=== PATIENT | male | born 1945 | race Caucasian/White ===

== ENCOUNTER 2018-02-18 15:49 | Emergency (ER) | payer OTHER ==
[~2018-02-18] VITALS: Ht 172.7 cm; Wt 93.9 kg
[2018-02-18 16:04] VITALS: Ht 172.7 cm; Wt 93.9 kg
[2018-02-18] MEDS ORDERED: SODIUM CHLORIDE 0.9% 1000ML 1,000 ML IV STA (16:20)
[2018-02-18 16:56] LABS: BASO % 1.1 %; BASO ABS # 0.06 K/uL (0-0.2); EOS % 0.2 %; EOS ABS # 0.01 K/uL (0-0.5); HEMATOCRIT 41.6 % (42-52); HEMOGLOBIN 13.8 g/dL (14.0-18.0); IG# 0.01 K/uL (0.00-0.02); LYMPH % 37.8 %; LYMPH ABS # 2.13 K/uL (1.2-3.4); MEAN CELL VOLUME 86.1 fL (80-100); MEAN CORPUSCULAR HEMOGLOBIN 28.6 pg (25-34); MEAN CORPUSCULAR HGB CONC 33.2 g/dl (32-36); MONO % 7.6 %; MONO ABS # 0.43 K/uL (0.11-0.59); NEUT % 53.1 %; PLATELET COUNT 141 K/uL (130-400); RED CELL DISTRIBUTION WIDTH SD 44.3 fL (36.4-46.3); WHITE BLOOD COUNT 5.64 K/uL (4.8-10.8)
[2018-02-18] MEDS ORDERED: ACETAMINOPHEN 500 MG TAB PO STA (17:02)
[2018-02-18 17:08] LABS: BLOOD UREA NITROGEN 15 mg/dl (7-18); CALCIUM 8.9 mg/dl (8.5-10.1); CARBON DIOXIDE 29 mmol/L (21-32); CKMB < 0.5 ng/ml (0.5-3.6); CREATININE 1.13 mg/dl (0.60-1.40); GLUCOSE 131 mg/dl (70-99); SODIUM 137 mmol/L (136-145)
[2018-02-18 17:12] LABS: INR 1.1 (0.9-1.1)
--- NOTE | 2018-02-18 17:27 | DIAGNOSTIC IMAGING REPORT ---
CHEST ONE VIEW PORTABLE CLINICAL HISTORY: 72 years-old Male presenting with Evaluate Fever/Sepsis. TECHNIQUE: Portable upright AP view of the chest was obtained. COMPARISON: None. FINDINGS: Cardiomediastinal silhouette normal. Minimal linear opacity at the left lung base. No other focal opacity. No large effusion or pneumothorax. Degenerative changes of the thoracic spine. IMPRESSION: 1. Minimal linear opacity at the left lung base likely atelectasis or scarring. No convincing evidence of acute cardiopulmonary disease. Electronically signed by: Sukhi Blackwell M.D. 02/18/2018 5:26 PM Dictated Date/Time: 02/18/2018 5:25 PM
[2018-02-18 17:28] LABS: INFLUENZA B ANTIGEN Neg for Influ B (NEG)
[2018-02-18] MEDS ORDERED: METF750T PO (17:31)
[2018-02-18] MEDS ORDERED: CARB0.01 OPB (17:31)
[2018-02-18] MEDS ORDERED: ATEN-173 PO (17:31)
[2018-02-18] MEDS ORDERED: ASPI81TA28 PO (17:31)
[2018-02-18] MEDS ORDERED: AMLO-114 PO (17:31)
[2018-02-18] MEDS ORDERED: LSN/2025 PO (17:31)
[2018-02-18] MEDS ORDERED: MULT-513 PO (17:31)
[2018-02-18] MEDS ORDERED: HYDR2.5O TOP (17:31)
[2018-02-18] MEDS ORDERED: LOVA40TA4 PO (17:31)
[2018-02-18] MEDS ORDERED: CYAN500T PO (17:31)
[2018-02-18] MEDS ORDERED: GLIP5TAB11 PO (17:31)
[2018-02-18] MEDS ORDERED: AMOXICILLIN 250 MG CAP PO STA (17:43)
[2018-02-18] MEDS ORDERED: AMOX875T3 PO (17:50)
--- NOTE | 2018-02-18 17:51 | EMERGENCY ROOM VISIT NOTE ---
History Report prepared by Vladimir: Tracey Alexandre Under the Supervision of: Dr. Dmitry Ravi D.O. 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 He states he has had 4 episodes of fevers, chills, dry cough, decreased appetite, and fatigue over the past 2 months. He also notes he has body aches but denies a sore throat. He took his temperature before coming into the ED and had a fever of 101.6. The patient currently has a headache that he rates as a 4/10 in severity. He is accompanied by his who reports that he may be dehydrated. 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 Review of Systems See HPI for pertinent positives & negatives. A total of 10 systems reviewed and were otherwise negative. Past Medical & Surgical Medical Problems: (1) No chronic problems No chronic problems Family History Patient reports no known family medical history. Social History Smoking Status: Former Smoker Marital Status: Housing Status: lives with significant other Occupation Status: retired Current/Historical Medications Scheduled Amlodipine (Norvasc), 10 MG PO QAM Aspirin (Aspirin Ec), 81 MG PO QAM Atenolol (Tenormin), 25 MG PO QAM Cyanocobalamin (Vitamin B-12), 500 MCG PO QAM Glipizide (Glucotrol), 2.5 MG PO BID Hctz/Lisinopril (Lisinopril/Hctz 20/25 Mg), 2 TAB PO QAM Hydrocortisone (Topical) (Hydrocortisone), 1 APPLN TOP BID Lovastatin (Mevacor), 40 MG PO HS Metformin Hcl (Glucophage Er), 1,500 MG PO HS Multivitamins/Minerals (Mvi With Minerals), 1 TAB PO QAM Scheduled PRN Carboxymethylcellulose-Glyceri (Optive), 1 DROPS OPB BID PRN for DRYNESS Allergies Coded Allergies: No Known Allergies (Unverified , 02/18/18) Physical Exam Vital Signs Date Time Temp Pulse Resp B/P (MAP) Pulse Ox O2 Delivery O2 Flow Rate FiO2 02/18/18 16:04 38.1 73 18 124/62 95 Room Air Physical Exam CONSTITUTIONAL/VITAL SIGNS: Reviewed / noted above. GENERAL: Non-toxic in appearance. INTEGUMENTARY: Warm, dry, and [place]. HEAD: Normocephalic. EYES: without scleral icterus or trauma. ENT/OROPHARYNX: clear and moist. LYMPHADENOPATHY/NECK: Is supple without lymphadenopathy or meningismus. RESPIRATORY: Lungs clear and equal. CARDIOVASCULAR: Regular rate and rhythm. GI/ABDOMEN: Soft and nontender. No organomegaly or pulsatile mass. No rebound or guarding. Normal bowel sounds. EXTREMITIES: Warm and well perfused. BACK: No CVA tenderness. NEUROLOGICAL: Intact without focal deficits. PSYCHIATRIC: normal affect. MUSCULOSKELETAL: Normally developed with good muscle tone. Medical Decision & Procedures ER Provider Diagnostic Interpretation: Radiology results as stated below per my review and radiologist interpretation: CHEST ONE VIEW PORTABLE CLINICAL HISTORY: 72 years-old Male presenting with Evaluate Fever/Sepsis. TECHNIQUE: Portable upright AP view of the chest was obtained. COMPARISON: None. FINDINGS: Cardiomediastinal silhouette normal. Minimal linear opacity at the left lung base. No other focal opacity. No large effusion or pneumothorax. Degenerative changes of the thoracic spine. IMPRESSION: 1. Minimal linear opacity at the left lung base likely atelectasis or scarring. No convincing evidence of acute cardiopulmonary disease. Electronically signed by: Sukhi Blackwell M.D. 02/18/2018 5:26 PM Laboratory Results 02/18/18 16:37 Red Blood Count 4.83, Mean Corpuscular Volume 86.1, Mean Corpuscular Hemoglobin 28.6, Mean Corpuscular Hemoglobin Concent 33.2, Mean Platelet Volume 10.0, Neutrophils (%) (Auto) 53.1, Lymphocytes (%) (Auto) 37.8, Monocytes (%) (Auto) 7.6, Eosinophils (%) (Auto) 0.2, Basophils (%) (Auto) 1.1, Neutrophils # (Auto) 3.00, Lymphocytes # (Auto) 2.13, Monocytes # (Auto) 0.43, Eosinophils # (Auto) 0.01, Basophils # (Auto) 0.06 02/18/18 16:37 Test 02/18/18 16:20 02/18/18 16:37 02/18/18 16:54 Urine Color DK YELLOW Urine Appearance CLEAR (CLEAR) Urine pH 5.0 (4.5-7.5) Urine Specific [place] 1.021 (1.000-1.030) Urine Protein NEG (NEG) Urine Glucose (UA) NEG (NEG) Urine Ketones TRACE (NEG) Urine Occult Blood NEG (NEG) Urine Nitrite NEG (NEG) Urine Bilirubin NEG (NEG) Urine Urobilinogen NEG (NEG) Urine Leukocyte Esterase NEG (NEG) Urine WBC (Auto) 1-5 /hpf (0-5) Urine RBC (Auto) 0-4 /hpf (0-4) Urine Hyaline Casts (Auto) 1-5 /lpf (0-5) Urine Epithelial Cells (Auto) 5-10 /lpf (0-5) Urine Bacteria (Auto) NEG (NEG) White Blood Count 5.64 K/uL (4.8-10.8) Red Blood Count 4.83 M/uL (4.7-6.1) Hemoglobin 13.8 g/dL (14.0-18.0) Hematocrit 41.6 % (42-52) Mean Corpuscular Volume 86.1 fL (80-100) Mean Corpuscular Hemoglobin 28.6 pg (25-34) Mean Corpuscular Hemoglobin Concent 33.2 g/dl (32-36) Platelet Count 141 K/uL (130-400) Mean Platelet Volume 10.0 fL (7.4-10.4) Neutrophils (%) (Auto) 53.1 % Lymphocytes (%) (Auto) 37.8 % Monocytes (%) (Auto) 7.6 % Eosinophils (%) (Auto) 0.2 % Basophils (%) (Auto) 1.1 % Neutrophils # (Auto) 3.00 K/uL (1.4-6.5) Lymphocytes # (Auto) 2.13 K/uL (1.2-3.4) Monocytes # (Auto) 0.43 K/uL (0.11-0.59) Eosinophils # (Auto) 0.01 K/uL (0-0.5) Basophils # (Auto) 0.06 K/uL (0-0.2) RDW Standard Deviation 44.3 fL (36.4-46.3) RDW Coefficient of Variation 14.0 % (11.5-14.5) Immature Granulocyte % (Auto) 0.2 % Immature Granulocyte # (Auto) 0.01 K/uL (0.00-0.02) Prothrombin Time 11.9 SECONDS (9.0-12.0) Prothromb Time International Ratio 1.1 (0.9-1.1) Activated Partial Thromboplast Time 26.0 SECONDS (21.0-31.0) Partial Thromboplastin Ratio 1.0 Anion Gap 5.0 mmol/L (3-11) Est Creatinine Clear Calc Drug Dose 67.6 ml/min Estimated GFR () 75.9 Estimated GFR (Non- 65.5 BUN/Creatinine Ratio 13.1 (10-20) Calcium Level 8.9 mg/dl (8.5-10.1) Total Creatine Kinase 57 U/L (39-308) Creatine Kinase MB < 0.5 ng/ml (0.5-3.6) Creatine Kinase MB Ratio (0-3.0) Influenza Type A Antigen Neg for Influ A (NEG) Influenza Type B Antigen Neg for Influ B (NEG) Laboratory results as stated above per my review. Medications Administered Medications (Trade) Dose Ordered Sig/Jesu Route Start Time Stop Time Status Last Admin Dose Admin Sodium Chloride 1,000 ml @ 250 mls/hr Q4H STAT IV 02/18/18 16:20 02/18/18 20:19 02/18/18 16:49 250 MLS/HR Acetaminophen (Tylenol Tab) 500 mg NOW STAT PO 02/18/18 17:02 02/18/18 17:04 DC 02/18/18 17:20 500 MG ED Course 1616: Previous medical records were reviewed. The patient was evaluated in room B2. A complete history and physical examination was performed. 1620: Sodium Chloride 1000 ml @ 250 mls/hr IV 1702: Ordered Tylenol Tab 500 mg PO 1744: On reevaluation, the patient is feeling better. I discussed the results and findings with the patient. He verbalized agreement of the treatment plan. He was discharged home. Medical Decision Differential includes viral illness, influenza, streptococcal pharyngitis, meningitis, pneumonia, sinusitis, UTI, pyelonephritis, otitis media. This is a 72-year-old male who presents to the ED with a chief complaint of fever, cough that is nonproductive, fatigue, decreased appetite and body aches. He reports having the symptoms for the past 2 days. Temperature today is 38.1. Vital signs otherwise stable. Physical exam was relatively unremarkable. The patient is in no distress. His exam did not reveal any abnormal findings on lung exam. His abdomen is soft and nontender. He did report some increased urination at night but had no additional urinary symptoms. He denies any skin infections, vomiting or diarrhea. The patient's test results did not show a clear-cut cause for the fever although the atelectasis on the chest x-ray could represent a pneumonia based on the patient' s symptoms. He is not hypoxic or having any respiratory difficulties but does have a cough. It is nonproductive. The patient CBC reviewed is normal, PRP is normal, urine did not show infection and flu swab was negative. The patient's symptoms could otherwise be viral in nature. The patient was started on amoxicillin. He was given a dose here and discharged on this. He will continue Tylenol for fever control. He was given a dose of this year. He was felt to be stable for discharge. Medication Reconcilliation Current Medication List: was personally reviewed by me Blood Pressure Screening Patient's blood pressure: Normal blood pressure Blood pressure disposition: Did not require urgent referral Impression Primary Impression: Pneumonia Scribe Attestation The scribe's documentation has been prepared under my direction and personally reviewed by me in its entirety. I confirm that the note above accurately reflects all work, treatment, procedures, and medical decision making performed by me. Departure Information Dispostion Home / Self-Care Prescriptions Amoxicillin (AMOXIL) 875 Mg Tab 1 TAB PO BID for 7 Days, #14 TAB Prov: Dmitry Ravi D.O. 02/18/18 Referrals Mallorie Olson M.D. (PCP) Forms HOME CARE DOCUMENTATION FORM, IMPORTANT VISIT INFORMATION, WORK / SCHOOL INSTRUCTIONS Patient Instructions My [facility] [employer] Additional Instructions Amoxicillin twice a day as prescribed. Take Tylenol as needed for fever. Follow-up with your doctor for further care and evaluation in 1-2 days. Return to the emergency department for worsening or new symptoms or any concerns. You have been examined and treated today on an emergency basis only. This is not a substitute for, or an effort to provide, complete comprehensive medical care. It is impossible to recognize and treat all injuries or illnesses in a single emergency department visit. It is therefore important that you follow up closely with your doctor. Call as soon as possible for an appointment.
[2018-02-18 18:42] VITALS: BP 125/60; PULSE 68; TEMP 38.1; O2SAT 93
== END 2018-02-18 18:43 | disposition home or self-care (01) ==
LOC: C.EDB 15:50
DX: J18.9 Pneumonia, unspecified organism (principal); R51 Headache; Z79.899 Other long term (current) drug therapy

== ENCOUNTER → 2018-05-12 | Outpatient (CLI) | payer OTHER ==
[~2018-05-12] MED LIST: ASPI81TA28 PO; CYAN500T PO; DXY100 PO; GLIP5TAB11 PO; HYDR2.5O TOP; METF750T PO; METO50TA16 PO; MULT-513 PO
[2018-05-12 14:39] LABS: ALBUMIN 3.5 gm/dl (3.4-5.0); ALKALINE PHOSPHATASE 72 U/L (45-117); ALT/SGPT 145 U/L (12-78); AST/SGOT 71 U/L (15-37); BLOOD UREA NITROGEN 15 mg/dl (7-18); CALCIUM 8.7 mg/dl (8.5-10.1); CARBON DIOXIDE 28 mmol/L (21-32); CREATININE 0.96 mg/dl (0.60-1.40); GLUCOSE 157 mg/dl (70-99); POTASSIUM 4.3 mmol/L (3.5-5.1); SODIUM 141 mmol/L (136-145)
== END | disposition home or self-care (01) ==
LOC: C.LABBC 10:26
PROVIDERS: ATTEND Physician Assistant Medical
DX: R74.0 Nonspecific elevation of levels of transaminase and lactic acid dehydrogenase [LDH] (principal); K76.0 Fatty (change of) liver, not elsewhere classified

== ENCOUNTER 2023-01-22 17:08 | Inpatient (IN) ==
[2023-01-22] MEDS ORDERED: SODIUM CHLORIDE 0.9% 1000ML 1,000 ML IV SCH (17:30)
[2023-01-22] MEDS ORDERED: LIDOCAINE/EPINEPH/TETRACAINE 1 EA SYR EXT STA (17:31)
--- NOTE | 2023-01-22 17:39 | Emergency Department Note ---
Impression & Plan Syncope and collapse, Fall, CHI (closed head injury), Atrial fibrillation with rapid ventricular response, Laceration of scalp ED Provider Note INFORMANT: Patient and family ED PROVIDER(S): Adams Garg MD CHIEF COMPLAINT: Fall PLAN: Disposition: Admitted Condition: Good Outpatient prescription management: none Referral: None MEDICAL DECISION MAKING: Patient presented because of a fall that by history appears to be a syncopal event. He did strike his head and suffered a laceration. He was in a cervical collar prehospital. Patient was evaluated. He was found to be in rapid atrial fibrillation. The patient is on diltiazem at home. He is anticoagulated. He w as started on diltiazem drip and given a bolus. The patient did have his drip titrated as he was still rapid. The patient underwent head CT and cervical spine CT imaging and this was negative for acute traumatic pathology other than a scalp laceration. I discontinued his cervical collar. The patient had his scalp laceration repaired by me. See below. His CBC and chemistry panels were unremarkable. Troponin negative. The patient is still dealing with rapid A- fib. He is mildly hypertensive. He will need further management in the hospital. Consultation was made with Dr. Rene Bae of the [facility] service. Patient was evaluated in the ER for further management. Discussed with assistant front office manager After review of the information above and other included data, I feel the patient requires admission. Triage Nursing notes reviewed and agree them. Vital Signs: reviewed and remarkable for no significant abnormalities Prior /Outside records reviewed: none Differential diagnosis: SDH, SAH, closed head injury, infection, dehydration, metabolic abnormality, hypo/hyperglycemia, electrolyte disturbance, anemia, hypoxia, cardiac sources, i ntracerebral event, toxicologic, neurologic, as well as other pathologies. Diagnostics, as interpreted by me: EC ECG twelve-lead ECG reveals atrial fibrillation at [address] depression noted. Right bundle branch block and QRS widening present. Cardiac Monitoring: Cardiac monitoring ordered by me: The patient was placed on continuous cardiac monitoring and observed. It revealed atrial fibrillation with RVR at 130 bpm Medical decision rules: none Imaging studies: CT head and CT cervical spine negative for intracranial or cervical trauma. I refer you to the EMR for further details. HPI: The patient is a 77 year old male who presents to the Emergency Room with complaints of fall. This started just prior to arrival and occurred at home. The patient was ambulating to the bathroom. He is not sure what happened. He fell and hit the floor. Family heard him and noted he was dazed on the floor. He suffered a laceration to his right scalp. The patient also notes the following associated symptoms, mild headache. The patient has been placed in a cervical collar by EMS but given no medication for relieving factors. Current pain is rated as 3/10. Patient denies any recent illness pt denies fevers, chills, diaphoresis, visual changes, neck pain, chest pain, breathing difficulties, nausea, vomiting, abdominal pain, back pain, urinary symptoms, numbness, weakness, lymphadenopathy, rash, or other complaints. PAST MEDICAL HISTORY: See Below, A-fib, hypertension PAST SURGICAL HISTORY: See Below, SOCIAL HISTORY: See Below, retired HOME MEDICATIONS: See Below ALLERGIES: See Below VITALS: See Below PHYSICAL EXAMINATION: GENERAL: Awake, alert, [id number], in no distress HENT: Normocephalic, laceration to the scalp on the right with associated contusion.. Oropharynx unremarkable. EYES: Normal conjunctiva. Sclera non-icteric. PERRLA. NECK: Inspection normal. Cervical collar in place. No midline step-off or tenderness. No masses. RESPIRATORY: Clear to auscultation. No wheezes. No rales. Normal respiratory effort. CARDIAC: Tachycardic rate. Irregular rhythm. No murmurs. No rubs. Extremities warm and well perfused. Pulses equal. No JVD. GI: Soft, non-distended. No tenderness to palpation. No rebound or guarding. No masses. RECTAL: Deferred. MUSCULOSKELETAL: Atraumatic. Chest examination reveals no tenderness. The back is symmetrical on inspection without obvious abnormality. There is no CVA tenderness to palpation. No joint edema. LOWER EXTREMITIES: Calves are equal size bilaterally and non-tender. 1+ edema. No discoloration. NEURO: Normal sensorium. No sensory or motor deficits noted. SKIN: No rash or jaundice noted. LACERATION REPAIR: Location: Scalp Total length: 3 cm Complexity: Simple Verbal consent was obtained after the risks and benefits were explained, including but not limited to bleeding, scarring, infection, pain, and bone/nerve damage. At this time, the risks of the procedure are less than the risks of NOT performing the procedure. A time out was taken and the correct patient and site identified. The scalp was prepped with betadine. The target area was anesthetized let gel. Copious irrigation was performed using saline. The skin was re-prepped with betadine, the hair cleared from the wound, and a sterile field set. The wound was explored for foreign bodies and none found. Debridement was not performed. The wound edges were approximated using 4 surgical gilbert in the standard fashion. Hemostasis and excellent approximation was achieved. Antibacterial ointment and a sterile dressing applied. Detailed wound care i nstructions and signs and symptoms of infection reviewed with the patient and. No complications and the patient tolerated the procedure well. CRITICAL CARE: I have personally spent greater than 35 minutes of critical care time in the direct management of this patient. This includes bedside care, interpretation of diagnostic studies, and testing, discussion with consultants, patient, and family members, and other required patient management activities. This 35 minutes is in excess of all separately billable procedures. Past Med/Surg History Medical History Atrial fibrillation Bilateral renal cysts Coronary artery calcification Elevated transaminase level Hepatic steatosis Hyperlipidemia Hypertension Solitary pulmonary nodule Thyroid nodule Type 2 diabetes mellitus Volar plate injury of finger Surgical History History of cholecystectomy 1984 History of hernia repair 1985 Family History Mother Stroke Gallbladder disease Cardiac disorder Hypertension Brother Gallbladder disease Hypertension Diabetes Drug abuse Father Cardiac disorder Hypertension Grandmother (Paternal) Breast cancer Denies family history of Ovarian cancer Prostate cancer Colorectal cancer Social History Smoking Status: Never smoker Second Hand Exposure: No; Hx Alcohol Use: No Hx Substance Use: No Preferred Language: Kyrgyz Communication Ability: Effective Visual Impairment: Limited Hearing Ability: Normal marital status: / Current Living Situation: Family Current Living Situation Comment: lives with two sons current occupational status: retired How many Children do You have: 2 Feels Safe at Home: Yes Childhood Exposure to Second-Hand Smoke: No caffeine: Yes (coffee ) Dental Care, Regularly: No Physical Activity Frequency: Does not Exercise Seatbelt Use: always Sunscreen Use: No Allergies Allergies Allergy/AdvReac Type Severity Reaction Status Date / Time No Known Allergies Allergy Verified 01/22/23 19:00 Home Meds Home Medications Medication Instructions Recorded Confirmed cyanocobalamin (vitamin B-12) 1,000 mcg PO DAILY 04/07/19 01/22/23 1,000 mcg tablet multivitamin (Daily Multi-Vitamin 1 tab PO DAILY 04/07/19 01/22/23 tablet) diltiazem HCl 180 mg capsule,24 180 mg PO DAILY 11/11/19 01/22/23 hr,extended release metformin 500 mg tablet 2,000 mg PO DAILY 11/11/19 01/22/23 apixaban 5 mg tablet 5 mg PO BID 05/19/20 01/22/23 metoprolol succinate 100 mg 100 mg PO DAILY 01/22/23 01/22/23 tablet,extended release 24 hr rosuvastatin 10 mg tablet 5 mg PO DAILY 01/22/23 01/22/23 Results & Data (ED) Vital Signs Vital Signs - 24 hr 01/22/23 17:16 01/22/23 17:16 01/22/23 17:22 Temperature 36.6 C 36.6 C Temperature Source Oral Oral Pulse Rate 127 H 130 H Pulse Rate [Apical] 130 H Pulse Rate from SpO2 Sensor Pulse Rhythm [Apical] Irregular Respiratory Rate 18 18 Respiratory Effort / Characteristics Non-Labored Respiratory Depth Normal Normal Blood Pressure 170/103 H Blood Pressure [Left Arm] 152/93 H Blood Pressure Mean 125 Blood Pressure Mean [Left Arm] 112 Pulse Oximetry 96 96 Oxygen Delivery Method Room Air Room Air Sepsis Recent Fever Within 48 Hours No Sepsis New/Unexplained Change in Mental Status No Sepsis Action Taken by Nursing No Action Required 01/22/23 18:54 01/22/23 19:12 01/22/23 19:20 Temperature Temperature Source Pulse Rate 128 H 127 H Pulse Rate [Apical] 128 H Pulse Rate from SpO2 Sensor 128 H 128 H Pulse Rhythm [Apical] Irregular Respiratory Rate 18 14 13 Respiratory Effort / Characteristics Respiratory Depth Blood Pressure 167/98 H Blood Pressure [Left Arm] 153/94 H Blood Pressure Mean 121 Blood Pressure Mean [Left Arm] 113 Pulse Oximetry 96 94 93 Oxygen Delivery Method Room Air Sepsis Recent Fever Within 48 Hours Sepsis New/Unexplained Change in Mental Status Sepsis Action Taken by Nursing 01/22/23 19:30 Temperature Temperature Source Pulse Rate 127 H Pulse Rate [Apical] Pulse Rate from SpO2 Sensor 126 H Pulse Rhythm [Apical] Respiratory Rate 12 Respiratory Effort / Characteristics Respiratory Depth Blood Pressure 162/99 H Blood Pressure [Left Arm] Blood Pressure Mean 120 Blood Pressure Mean [Left Arm] Pulse Oximetry 93 Oxygen Delivery Method Sepsis Recent Fever Within 48 Hours Sepsis New/Unexplained Change in Mental Status Sepsis Action Taken by Nursing Laboratory Data 01/22/23 17:18 01/22/23 17:18 Lab Results 01/22/23 01/22/23 01/22/23 Range/Units 17:18 17:18 17:18 WBC 7.73 (4.8-10.8) K/ul RBC 4.88 (4.70-6.10) M/uL Hgb 14.3 (14.0-18.0) g/dl Hct 43.3 (42.0-52.0) % MCV 88.7 (80.0-100.0) fL MCH 29.3 (25.0-34.0) pg MCHC 33.0 (32.0-36.0) g/dL RDW Std Deviation 44.2 (36.4-46.3) fL RDW Coeff of Timothy 13.6 (11.5-14.5) % Plt Count 225 (130-400) K/uL MPV 10.7 (9.4-12.4) fL Immature Gran % (Auto) 0.4 % Neut % (Auto) 67.9 % Lymph % (Auto) 23.4 % [place] % (Auto) 7.0 % Eos % (Auto) 0.8 % Baso % (Auto) 0.5 % Neut # (Auto) 5.25 (1.40-6.50) K/uL Lymph # (Auto) 1.81 (1.2-3.4) K/uL [place] # (Auto) 0.54 (0.11-0.59) K/uL Eos # (Auto) 0.06 (0-0.50) K/uL Baso # (Auto) 0.04 (0-0.2) K/uL Immature Gran # (Auto) 0.03 (0.01-0.20) K/uL PT 11.9 (9.0-12.0) Seconds INR 1.1 (0.9-1.1) Sodium 143 (136-145) mmol/L Potassium 4.6 (3.5-5.1) mmol/L Chloride 105 (98-107) mmol/L Carbon Dioxide 22 (21-32) mmol/L Anion Gap 16 H (3-11) BUN 22 (6-23) mg/dl Creatinine 1.17 (0.6-1.4) mg/dl Est Cr Clr Drug Dosing 59.9 ml/min Est GFR ( Amer) 70.3 ml/min Est GFR (Non-Af Amer) 60.6 ml/min BUN/Creatinine Ratio 18.8 (10-20) Glucose 180 H (70-99(Fasting)) mg/dl Calcium 9.7 (8.6-10.3) mg/dl Magnesium 1.7 (1.7-2.4) mg/dl Total Bilirubin 0.5 (0.2-1.0) mg/dl AST 37 (13-39) U/L ALT 40 (7-52) U/L Alkaline Phosphatase 40 (34-104) U/L Troponin I High Sens 4.6 (0-20) pg/ml Total Protein 7.0 (6.0-8.3) gm/dl Albumin 4.4 (3.4-5.0) gm/dl Globulin 2.6 (2.5-4.0) gm/dl Albumin/Globulin Ratio 1.7 (0.9-2) TSH (0.300-4.500) uIu/ml 01/22/23 Range/Units 17:18 WBC (4.8-10.8) K/ul RBC (4.70-6.10) M/uL Hgb (14.0-18.0) g/dl Hct (42.0-52.0) % MCV (80.0-100.0) fL MCH (25.0-34.0) pg MCHC (32.0-36.0) g/dL RDW Std Deviation (36.4-46.3) fL RDW Coeff of Timothy (11.5-14.5) % Plt Count (130-400) K/uL MPV (9.4-12.4) fL Immature Gran % (Auto) % Neut % (Auto) % Lymph % (Auto) % [place] % (Auto) % Eos % (Auto) % Baso % (Auto) % Neut # (Auto) (1.40-6.50) K/uL Lymph # (Auto) (1.2-3.4) K/uL [place] # (Auto) (0.11-0.59) K/uL Eos # (Auto) (0-0.50) K/uL Baso # (Auto) (0-0.2) K/uL Immature Gran # (Auto) (0.01-0.20) K/uL PT (9.0-12.0) Seconds INR (0.9-1.1) Sodium (136-145) mmol/L Potassium (3.5-5.1) mmol/L Chloride (98-107) mmol/L Carbon Dioxide (21-32) mmol/L Anion Gap (3-11) BUN (6-23) mg/dl Creatinine (0.6-1.4) mg/dl Est Cr Clr Drug Dosing ml/min Est GFR ( Amer) ml/min Est GFR (Non-Af Amer) ml/min BUN/Creatinine Ratio (10-20) Glucose (70-99(Fasting)) mg/dl Calcium (8.6-10.3) mg/dl Magnesium (1.7-2.4) mg/dl Total Bilirubin (0.2-1.0) mg/dl AST (13-39) U/L ALT (7-52) U/L Alkaline Phosphatase (34-104) U/L Troponin I High Sens (0-20) pg/ml Total Protein (6.0-8.3) gm/dl Albumin (3.4-5.0) gm/dl Globulin (2.5-4.0) gm/dl Albumin/Globulin Ratio (0.9-2) TSH 2.799 (0.300-4.500) uIu/ml Administered Medications Sodium Chloride (Nss 1000ml) 1,000 mls @ 125 mls/hr IV .Q8H KEITH Stop: 01/23/23 01:29 Last Admin: 01/22/23 17:57 Dose: 125 mls/hr Documented By: BECCA Diltiazem HCl 125 mg/ Dextrose 125 mls @ 5 mls/hr IV .Q24H KEITH; Protocol Stop: 02/21/23 18:29 Last Titration: 01/22/23 19:36 Dose: 7.5 mg/hr, 7.5 mls/hr Documented By: CHARITY Co-signed By: VANESSA Admin: 01/22/23 18:52 Dose: 5 mg/hr, 5 mls/hr Documented By: KV Co-signed By: MT Discontinued Medications Diltiazem HCl (Diltiazem Hcl 5 Mg/Ml 5 Ml Vial) 10 mg IV NOW STA Stop: 01/22/23 18:20 Last Admin: 01/22/23 18:38 Dose: 10 mg Documented By: KV Co-signed By: HG Lidocaine (Lidocaine/Epineph/Tetracaine 1 Ea Syr) 1 each EXT NOW STA Stop: 01/22/23 17:32 Last Admin: 01/22/23 17:57 Dose: 1 each Documented By: KV Imaging Data Radiologist's Impression: Chest X-Ray 01/22/23 17:25 XR chest 1V portable HISTORY: tachycardia COMPARISON: Chest 12/04/2022. Chest CT 06/15/2021. FINDINGS: Stable 1 cm circumscribed nodule within the right upper lobe. No p neumothorax. No pleural effusions. Left basilar linear densities favor subsegmental atelectasis. Otherwise, no focal lung consolidations to suggest a pneumonia. No evidence for pulmonary edema. The heart remains mildly enlarged. IMPRESSION: No significant change compared to the prior study. No acute process. Stable 1 cm right upper lobe nodule. ACT 112: Negative or not required by law. Electronically signed by: Fabian Bill M.D. 01/22/2023 5:[address] 01/22/23 17:[address] DOSE: HISTORY: trauma TECHNIQUE: Multiaxial CT images of the head were performed without the use of intravenous contrast. Automated exposure control was utilized for this study. A dose lowering technique was utilized adhering to the principles of ALARA. Comparison: None. Findings: The paranasal sinuses and mastoid air cells are clear. The calvarium and skull base are intact. The ventricles and sulci are within normal limits. There is no mass, hematoma, midline shift, or acute infarct. Scalp laceration at the right high convexity. Impression: No acute intracranial abnormality. Right-sided scalp laceration. ACT 112: Negative or not required by law. Electronically signed by: Fabian Bill M.D. 01/22/2023 7:[address] 01/22/23 17:[address] DOSE: 1133.91 mGy.cm HISTORY: Fall. trauma TECHNIQUE: Multiaxial CT images of the cervical spine were performed and reformatted in the sagittal and coronal plane without the use of contrast. A dose lowering technique was utilized adhering to the principles of ALARA. COMPARISON: None. FINDINGS: No fractures. No subluxation. Prevertebral soft tissues and the C1-C2 interval are intact. No pneumothorax. There is a 2.5 cm right thyroid nodule. Severe disc space narrowing from C3 through C5. Moderate disc space narrowing at C5-C6. IMPRESSION: 1. No fractures within the cervical spine. 2. A 2.5 cm right thyroid nodule. ACT 112: Negative or not required by law. Electronically signed by: Fabian Bill M.D. 01/22/2023 7:36 PM Discharge Plan Visit Data Chief Complaint: Fall Stated Complaint: FALL, ABRASSION TO HEAD ED Provider: Adams Garg Discharge Problem: Syncope and collapse, Fall, CHI (closed head injury), Atrial fibrillation with rapid ventricular response, Laceration of scalp Forms Stand Alone Forms: [facility] Prescriptions Prescriptions: No Action cyanocobalamin (vitamin B-12) 1,000 mcg tablet 1,000 mcg PO DAILY multivitamin [Daily Multi-Vitamin] tablet 1 tab PO DAILY metformin 500 mg tablet 2,000 mg PO DAILY diltiazem HCl 180 mg capsule,extended release 24 hr 180 mg PO DAILY apixaban 5 mg tablet 5 mg PO BID metoprolol succinate 100 mg Tablet Extended Release 24 Hr 100 mg PO DAILY rosuvastatin 10 mg Tablet 5 mg PO DAILY Referrals Referrals: Sukhi Kearns MD [Primary Care Provider] -
--- NOTE | 2023-01-22 17:44 | XRay Report ---
XR chest 1V portable HISTORY: tachycardia COMPARISON: Chest 12/04/2022. Chest CT 06/15/2021. FINDINGS: Stable 1 cm circumscribed nodule within the right upper lobe. No pneumothorax. No pleural e ffusions. Left basilar linear densities favor subsegmental atelectasis. Otherwise, no focal lung cons olidations to suggest a pneumonia. No evidence for pulmonary edema. The heart remains mildly enlarged . IMPRESSION: No significant change compared to the prior study. No acute process. Stable 1 cm right upper lobe nod ule. ACT 112: Negative or not required by law. Electronically signed by: Fabian Bill M.D. 01/22/2023 5:43 PM
[2023-01-22 18:10] LABS: Basophils # (auto) 0.04 K/uL (0-0.2); Basophils % (auto) 0.5 %; Eosinophils # (auto) 0.06 K/uL (0-0.50); Eosinophils % (auto) 0.8 %; Hematocrit (blood only) 43.3 % (42.0-52.0); Hemoglobin 14.3 g/dl (14.0-18.0); Immature Granulocytes # (auto) 0.03 K/uL (0.01-0.20); Immature Granulocytes % (auto) 0.4 %; Lymphocytes # (auto) 1.81 K/uL (1.2-3.4); Lymphocytes % (auto) 23.4 %; Mean Corpuscular Hemoglobin 29.3 pg (25.0-34.0); Mean Corpuscular Volume 88.7 fL (80.0-100.0); Mean Platelet Volume 10.7 fL (9.4-12.4); Monocytes # (auto) 0.54 K/uL (0.11-0.59); Neutrophils # (auto) 5.25 K/uL (1.40-6.50); Neutrophils % (auto) 67.9 %; Platelet Count 225 K/uL (130-400); RDW Coefficient of Variation 13.6 % (11.5-14.5); RDW Standard Deviation 44.2 fL (36.4-46.3); Red Blood Count 4.88 M/uL (4.70-6.10); White Blood Count 7.73 K/ul (4.8-10.8)
[2023-01-22] MEDS ORDERED: dilTIAZem HCl 5 MG/ML 5 ML VIAL IV STA (18:19)
[2023-01-22] MEDS ORDERED: STAT IV Infusion **Titration per Protocol STA (18:19)
[2023-01-22 18:27] LABS: Troponin I High Sensitivity 4.6 pg/ml (0-20)
[2023-01-22 18:28] LABS: INR 1.1 (0.9-1.1); Prothrombin Time 11.9 Seconds (9.0-12.0)
[2023-01-22] MEDS ORDERED: dilTIAZem HCL 125 MG in DEXTROSE 5% 100 ML IV SCH (18:30)
--- NOTE | 2023-01-22 19:34 | CT Scan Report ---
HEAD CT NONCONTRAST CT DOSE: HISTORY: trauma TECHNIQUE: Multiaxial CT images of the head were performed without the use of intravenous contrast. A utomated exposure control was utilized for this study. A dose lowering technique was utilized adheri ng to the principles of ALARA. Comparison: None. Findings: The paranasal sinuses and mastoid air cells are clear. The calvarium and skull base are int act. The ventricles and sulci are within normal limits. There is no mass, hematoma, midline shift, or acute infarct. Scalp laceration at the right high convexity. Impression: No acute intracranial abnormality. Right-sided scalp laceration. ACT 112: Negative or not required by law. Electronically signed by: Fabian Bill M.D. 01/22/2023 7:32 PM
--- NOTE | 2023-01-22 19:38 | CT Scan Report ---
CERVICAL SPINE CT CT DOSE: 1133.91 mGy.cm HISTORY: Fall. trauma TECHNIQUE: Multiaxial CT images of the cervical spine were performed and reformatted in the sagittal and coronal plane without the use of contrast. A dose lowering technique was utilized adhering to th e principles of ALARA. COMPARISON: None. FINDINGS: No fractures. No subluxation. Prevertebral soft tissues and the C1-C2 interval are intact. No pneumothorax. There is a 2.5 cm right thyroid nodule. Severe disc space narrowing from C3 through C5. Moderate disc space narrowing at C5-C6. IMPRESSION: 1. No fractures within the cervical spine. 2. A 2.5 cm right thyroid nodule. ACT 112: Negative or not required by law. Electronically signed by: Fabian Bill M.D. 01/22/2023 7:36 PM
[2023-01-22 19:53] LABS: Albumin Globulin Ratio 1.7 (0.9-2); Albumin Level 4.4 gm/dl (3.4-5.0); BUN Creatinine Ratio 18.8 (10-20); Bilirubin,Total 0.5 mg/dl (0.2-1.0); Calcium 9.7 mg/dl (8.6-10.3); Creatinine Clr Calc Pharmacy 59.9 ml/min; Est GFR (African American) 70.3 ml/min; Est GFR (Non-African American) 60.6 ml/min; Globulin 2.6 gm/dl (2.5-4.0); Magnesium 1.7 mg/dl (1.7-2.4); Potassium 4.6 mmol/L (3.5-5.1)
[2023-01-22 21:10] LABS: Appearance Urine Clear (Clear); Bilirubin Urine Negative (Negative); Blood Urine Negative (Negative); Color Urine Yellow; Glucose Urine UA Negative (Negative); Ketones Urine 1+ (Negative); Leukocyte Esterase Urine Negative (Negative); Nitrite Urine Negative (Negative); Protein Urine Negative (Negative); Specific Gravity Urine 1.014 (1.000-1.030); Urobilinogen Urine Negative (Negative)
[2023-01-22] MEDS ORDERED: dilTIAZem HCL 30 MG TAB PO ONE (21:21)
--- NOTE | 2023-01-22 21:30 | History & Physical Report ---
Date of Service January 22, 2023 Assessment & Plan (1) Fall: (2) CHI (closed head injury): (3) Atrial fibrillation with rapid ventricular response: (4) Laceration of scalp: (5) Syncope and collapse: (6) Coronary artery calcification: (7) Atrial fibrillation: (8) Hepatic steatosis: (9) Hyperlipidemia: (10) Hypertension: (11) Solitary pulmonary nodule: (12) Thyroid nodule: (13) Type 2 diabetes mellitus: Plan Status post fall with syncopal episode and collapse- Patient had no warning, and primary memory returned during the ride to the hospital in the ambulance. Seen in the emergency department, the patient reports that he feels back to normal. He denies any change in recent activities, oral intake and has been taking his medications as directed CT scan of head is negative, other than for right scalp laceration CT scan of cervical spine is negative other than for 2.5 cm right thyroid nodule Presumptively associated with development of A-fib with RVR and adverse effect on blood pressure Atrial fibrillation with RVR/hypertension- The patient will be admitted to telemetry for serial cardiac enzymes, serial EKG's, cardiac rhythm monitoring and a 2-D echocardiogram with Dopplers. Continue apixaban 5 mg p.o. twice daily Continue diltiazem HCl 180 mg extended release daily Continue metoprolol succinate 100 mg p.o. daily The patient has been started on Cardizem drip in the ED Will try to stop Cardizem drip after starting oral Cardizem 30 mg p.o. 3 times daily. Patient will likely need Cardizem CD180 mg p.o. twice daily Optimize potassium and magnesium then follow laboratories every morning Consult cardiology Diabetes mellitus- Hold metformin Placed on Accu-Cheks with NovoLog SSI Hyperlipidemia- Continue rosuvastatin 5 mg daily History of Present Illness Chief Complaint: The patient presents to the emergency department after a syncopal episode at home, where he fell and suffered a laceration. Upon arrival to the emergency department he was found in atrial fibrillation with RVR Primary Care Provider: Sukhi Kearns MD The patient is a 77-year-old male with past medical history including atrial fibrillation, hepatic steatosis, hyperlipidemia, hypertension, solitary pulmonary nodule, thyroid nodule and diabetes mellitus type 2. He presents to the emergency department after a syncopal episode while at home, and upon arrival to the emergency department found in atrial fibrillation with RVR. The patient reports that his first recollection after passing out was waking up in the ambulance on the way to the hospital Allergies Allergy/AdvReac Type Severity Reaction Status Date / Time No Known Allergies Allergy Verified 01/22/23 19:00 Home Medications Medication Instructions Recorded Confirmed Type cyanocobalamin (vitamin B-12) 1,000 mcg PO DAILY 04/07/19 01/22/23 History 1,000 mcg tablet multivitamin (Daily Multi-Vitamin 1 tab PO DAILY 04/07/19 01/22/23 History tablet) diltiazem HCl 180 mg capsule,24 180 mg PO DAILY 11/11/19 01/22/23 History hr,extended release metformin 500 mg tablet 2,000 mg PO DAILY 11/11/19 01/22/23 History apixaban 5 mg tablet 5 mg PO BID 05/19/20 01/22/23 History metoprolol succinate 100 mg 100 mg PO DAILY 01/22/23 01/22/23 History tablet,extended release 24 hr rosuvastatin 10 mg tablet 5 mg PO DAILY 01/22/23 01/22/23 History Past Med/Surg History Medical History Atrial fibrillation Bilateral renal cysts Coronary artery calcification Elevated transaminase level Hepatic steatosis Hyperlipidemia Hypertension Solitary pulmonary nodule Thyroid nodule Type 2 diabetes mellitus Volar plate injury of finger Surgical History History of cholecystectomy 1984 History of hernia repair 1985 Family History Mother Stroke Gallbladder disease Cardiac disorder Hypertension Brother Gallbladder disease Hypertension Diabetes Drug abuse Father Cardiac disorder Hypertension Grandmother (Paternal) Breast cancer Denies family history of Ovarian cancer Prostate cancer Colorectal cancer Social History Smoking Status: Former smoker Second Hand Exposure: No; Hx Alcohol Use: No Hx Substance Use: No Preferred Language: Spanish Communication Ability: Effective Visual Impairment: Limited Hearing Ability: Normal Beliefs That Will Affect Care: None marital status: / Current Living Situation: Family Current Living Situation Comment: lives with two sons current occupational status: retired How many Children do You have: 2 Feels Safe at Home: Yes Childhood Exposure to Second-Hand Smoke: No caffeine: Yes (coffee ) Dental Care, Regularly: No Physical Activity Frequency: Does not Exercise Seatbelt Use: always Sunscreen Use: No Assistive Devices: None Review of Systems Review of Systems: The patient denies chest pain, palpitations, shortness of breath, dyspnea on exertion, cough, lower extremity swelling, sore throat, fevers, chills, sweats, nausea, vomiting, diarrhea , constipation, abdominal pain, pelvic pain, blood in urine or stool, dysuria, urinary frequency or urgency, lightheadedness, dizziness, headache, rash, abnormal bruising or bleeding, imbalance, focal or generalized weakness, numbness or tingling in arms or legs, generalized arthralgias or myalgias, back or neck pain, or night sweats. The review of systems is otherwise negative other than for that already noted above, and at least 10 systems have been reviewed. Physical Exam Physical Exam: The patient is awake, alert and oriented 3, well developed and well nourished, normocephalic and atraumatic, lying in bed and in no acute distress. HEENT--PERRL, EOMI, mucous membranes and oropharynx dry. Neck--supple. No JVD. No bruits. Thyroid normal, trachea midline, no adenopathy. Heart--irregularly irregular and tachycardic. No murmurs, rubs or gallops. Lungs--clear bilaterally, no respiratory distress, no accessory muscle use. Abdomen--normal bowel sounds and soft. Nontender. Nondistended, no hernias or masses, no organomegaly. Extremities--no cyanosis or clubbing. No edema. There are good distal pulses b/l. Dermatologic--normal skin turgor, normal color, no abnormal lymph nodes, no rash. Neurologic--cranial nerves II through XII grossly intact. Rheumatologic--normal range of motion. Psychiatric--normal affect. Results & Data Results & Data Vital Signs (Past 12 Hours) Vital Signs Temp Pulse Pulse Resp BP BP Pulse Ox 01/22/23 21:26 115 H 01/22/23 19:30 127 H 12 162/99 H 93 01/22/23 19:20 127 H 13 93 01/22/23 19:12 128 H 14 167/98 H 94 01/22/23 18:54 128 H 18 153/94 H 96 01/22/23 17:22 130 H 01/22/23 17:16 36.6 C 130 H 18 152/93 H 96 01/22/23 17:16 36.6 C 127 H 18 170/103 H 96 O2 Del Method 01/22/23 21:26 01/22/23 19:30 01/22/23 19:20 01/22/23 19:12 01/22/23 18:54 Room Air 01/22/23 17:22 01/22/23 17:16 Room Air 01/22/23 17:16 Room Air Laboratory Results Laboratory Results WBC 7.73 K/ul (4.8-10.8) 01/22/23 17:18 RBC 4.88 M/uL (4.70-6.10) 01/22/23 17:18 Hgb 14.3 g/dl (14.0-18.0) 01/22/23 17:18 Hct 43.3 % (42.0-52.0) 01/22/23 17:18 MCV 88.7 fL (80.0-100.0) 01/22/23 17:18 MCH 29.3 pg (25.0-34.0) 01/22/23 17:18 MCHC 33.0 g/dL (32.0-36.0) 01/22/23 17:18 RDW Std Deviation 44.2 fL (36.4-46.3) 01/22/23 17:18 RDW Coeff of Timothy 13.6 % (11.5-14.5) 01/22/23 17:18 Plt Count 225 K/uL (130-400) 01/22/23 17:18 MPV 10.7 fL (9.4-12.4) 01/22/23 17:18 Immature Gran % (Auto) 0.4 % 01/22/23 17:18 Neut % (Auto) 67.9 % 01/22/23 17:18 Lymph % (Auto) 23.4 % 01/22/23 17:18 [place] % (Auto) 7.0 % 01/22/23 17:18 Eos % (Auto) 0.8 % 01/22/23 17:18 Baso % (Auto) 0.5 % 01/22/23 17:18 Neut # (Auto) 5.25 K/uL (1.40-6.50) 01/22/23 17:18 Lymph # (Auto) 1.81 K/uL (1.2-3.4) 01/22/23 17:18 [place] # (Auto) 0.54 K/uL (0.11-0.59) 01/22/23 17:18 Eos # (Auto) 0.06 K/uL (0-0.50) 01/22/23 17:18 Baso # (Auto) 0.04 K/uL (0-0.2) 01/22/23 17:18 Immature Gran # (Auto) 0.03 K/uL (0.01-0.20) 01/22/23 17:18 PT 11.9 Seconds (9.0-12.0) 01/22/23 17:18 INR 1.1 (0.9-1.1) 01/22/23 17:18 Sodium 143 mmol/L (136-145) 01/22/23 17:18 Potassium 4.6 mmol/L (3.5-5.1) 01/22/23 17:18 Chloride 105 mmol/L (98-107) 01/22/23 17:18 Carbon Dioxide 22 mmol/L (21-32) 01/22/23 17:18 Anion Gap 16 (3-11) H 01/22/23 17:18 BUN 22 mg/dl (6-23) 01/22/23 17:18 Creatinine 1.17 mg/dl (0.6-1.4) 01/22/23 17:18 Est Cr Clr Drug Dosing 59.9 ml/min 01/22/23 17:18 Est GFR ( Amer) 70.3 ml/min 01/22/23 17:18 Est GFR (Non-Af Amer) 60.6 ml/min 01/22/23 17:18 BUN/Creatinine Ratio 18.8 (10-20) 01/22/23 17:18 Glucose 180 mg/dl (70-99(Fasting)) H 01/22/23 17:18 Calcium 9.7 mg/dl (8.6-10.3) 01/22/23 17:18 Magnesium 1.7 mg/dl (1.7-2.4) 01/22/23 17:18 Total Bilirubin 0.5 mg/dl (0.2-1.0) 01/22/23 17:18 AST 37 U/L (13-39) 01/22/23 17:18 ALT 40 U/L (7-52) 01/22/23 17:18 Alkaline Phosphatase 40 U/L (34-104) 01/22/23 17:18 Troponin I High Sens 4.6 pg/ml (0-20) 01/22/23 17:18 Total Protein 7.0 gm/dl (6.0-8.3) 01/22/23 17:18 Albumin 4.4 gm/dl (3.4-5.0) 01/22/23 17:18 Globulin 2.6 gm/dl (2.5-4.0) 01/22/23 17:18 Albumin/Globulin Ratio 1.7 (0.9-2) 01/22/23 17:18 TSH 2.799 uIu/ml (0.300-4.500) 01/22/23 17:18 Urine Color Yellow 01/22/23 20:52 Urine Appearance Clear (Clear) 01/22/23 20:52 Urine pH 5.0 (4.5-7.5) 01/22/23 20:52 Ur Specific [place] 1.014 (1.000-1.030) 01/22/23 20:52 Urine Protein Negative (Negative) 01/22/23 20:52 Urine Glucose (UA) Negative (Negative) 01/22/23 20:52 Urine Ketones 1+ (Negative) H 01/22/23 20:52 Urine Blood Negative (Negative) 01/22/23 20:52 Urine Nitrite Negative (Negative) 01/22/23 20:52 Urine Bilirubin Negative (Negative) 01/22/23 20:52 Urine Urobilinogen Negative (Negative) 01/22/23 20:52 Ur Leukocyte Esterase Negative (Negative) 01/22/23 20:52 SARS-CoV-2, RNA, NAAT NEGATIVE (NEGATIVE) 01/22/23 19:25 Impressions Chest X-Ray 01/22/23 17:25 XR chest 1V portable HISTORY: tachycardia COMPARISON: Chest 12/04/2022. Chest CT 06/15/2021. FINDINGS: Stable 1 cm circumscribed nodule within the right upper lobe. No pneumothorax. No pleural effusions. Left basilar linear densities favor subsegmental atelectasis. Otherwise, no focal lung consolidations to suggest a pneumonia. No evidence for pulmonary edema. The heart remains mildly enlarged. IMPRESSION: No significant change compared to the prior study. No acute process. Stable 1 cm right upper lobe nodule. ACT 112: Negative or not required by law. Electronically signed by: Fabian Bill M.D. 01/22/2023 5:[address] 01/22/23 17:[address] DOSE: HISTORY: trauma TECHNIQUE: Multiaxial CT images of the head were performed without the use of intravenous contrast. Automated exposure control was utilized for this study. A dose lowering technique was utilized adhering to the principles of ALARA. Comparison: None. Findings: The paranasal sinuses and mastoid air cells are clear. The calvarium and skull base are intact. The ventricles and sulci are within normal limits. There is no mass, hematoma, midline shift, or acute infarct. Scalp laceration at the right high convexity. Impression: No acute intracranial abnormality. Right-sided scalp laceration. ACT 112: Negative or not required by law. Electronically signed by: Fabian Bill M.D. 01/22/2023 7:[address] 01/22/23 17:[address] DOSE: 1133.91 mGy.cm HISTORY: Fall. trauma TECHNIQUE: Multiaxial CT images of the cervical spine were performed and reformatted in the sagittal and coronal plane without the use of contrast. A dose lowering technique was utilized adhering to the principles of ALARA. COMPARISON: None. FINDINGS: No fractures. No subluxation. Prevertebral soft tissues and the C1-C2 interval are intact. No pneumothorax. There is a 2.5 cm right thyroid nodule. Severe disc space narrowing from C3 through C5. Moderate disc space narrowing at C5-C6. IMPRESSION: 1. No fractures within the cervical spine. 2. A 2.5 cm right thyroid nodule. ACT 112: Negative or not required by law. Electronically signed by: Fabian Bill M.D. 01/22/2023 7:36 PM Code Status & VTE Plan Code Status Full code VTE Prophylaxis Plan VTE Prophylaxis will be ordered: Yes PG Care Time/CCT Total # of Minutes Spent Total Time Spent with Patient: Total time spent is greater than 50% in coordination of care (as documented) at patient's floor/unit and/or counseling patient: Coding Level of Care Code 83125 INT INP/OBS CARE 375MIN Diagnoses Fall W19.XXXA CHI (closed head injury) S09.90XA Atrial fibrillation with rapid ventricular response I48.91 Laceration of scalp S01.01XA Syncope and collapse R55 Coronary artery calcification I25.10; I25.84 Atrial fibrillation I48.0 Atrial fibrillation type: paroxysmal Hepatic steatosis K76.0 Hyperlipidemia E78.5 Hyperlipidemia type: unspecified Hypertension I10 Hypertension type: essential hypertension Solitary pulmonary nodule R91.1 Thyroid nodule E04.1 Type 2 diabetes mellitus E11.9 Diabetes mellitus computer terminal operator insulin use: without computer terminal operator use Diabetes mellitus complication status: without complication (7) Atrial fibrillation Atrial fibrillation type: paroxysmal Qualified Code(s): I48.0 - Paroxysmal atrial fibrillation (9) Hyperlipidemia Hyperlipidemia type: unspecified Qualified Code(s): E78.5 - Hyperlipidemia, unspecified (10) Hypertension Hypertension type: essential hypertension Qualified Code(s): I10 - Essential (primary) hypertension (13) Type 2 diabetes mellitus Diabetes mellitus computer terminal operator insulin use: without alf use Diabetes mellitus complication status: without complication Qualified Code(s): E11.9 - Type 2 diabetes mellitus without complications
[2023-01-22] MEDS: MAGNESIUM SULFATE / D5W 1 GM/100 ML BAG IV SCH ×2 (21:41→23:22)
[2023-01-22] MEDS ORDERED: ONDANSETRON INJ 2 MG/ML 2 ML VIAL IV PRN (23:15)
[2023-01-22] MEDS ORDERED: CARBOHYDRATES FOR HYPOGLYCEMIA PO PRN (23:15)
[2023-01-22] MEDS ORDERED: GLUCOSE 10 TAB/TUBE PO PRN (23:15)
[2023-01-22] MEDS ORDERED: GLUCOSE 40% GEL 15 GM TUBE PO PRN (23:15)
[2023-01-22] MEDS ORDERED: DEXTROSE 50% 50 ML SYRINGE IV PRN (23:15)
[2023-01-22] MEDS ORDERED: GLUCAGON FOR INJ 1 MG VIAL SQ PRN (23:15)
[2023-01-22] MEDS: dilTIAZem HCL 30 MG TAB PO SCH (23:51)
[2023-01-23] MEDS ORDERED: MELATONIN 3 MG TAB PO PRN (01:00)
[2023-01-23] MEDS: ACETAMINOPHEN 325 MG TAB PO PRN ×2 (01:23→10:59)
[2023-01-23] MEDS: dilTIAZem HCL 30 MG TAB PO SCH (06:15)
[2023-01-23 07:31] LABS: Basophils # (auto) 0.02 K/uL (0-0.2); Basophils % (auto) 0.4 %; Eosinophils # (auto) 0.04 K/uL (0-0.50); Eosinophils % (auto) 0.7 %; Hematocrit (blood only) 40.6 % (42.0-52.0); Hemoglobin 13.5 g/dl (14.0-18.0); Immature Granulocytes # (auto) 0.01 K/uL (0.01-0.20); Immature Granulocytes % (auto) 0.2 %; Lymphocytes # (auto) 0.88 K/uL (1.2-3.4); Lymphocytes % (auto) 15.8 %; Mean Corpuscular Hemoglobin 29.1 pg (25.0-34.0); Mean Corpuscular Hgb Conc 33.3 g/dL (32.0-36.0); Mean Corpuscular Volume 87.5 fL (80.0-100.0); Mean Platelet Volume 10.5 fL (9.4-12.4); Monocytes # (auto) 0.52 K/uL (0.11-0.59); Monocytes % (auto) 9.3 %; Neutrophils % (auto) 73.6 %; Platelet Count 190 K/uL (130-400); RDW Coefficient of Variation 13.6 % (11.5-14.5); Red Blood Count 4.64 M/uL (4.70-6.10); White Blood Count 5.57 K/ul (4.8-10.8)
[2023-01-23] MEDS: CYANOCOBALAMIN (B-12) 500 MCG TABLET PO SCH (07:54)
[2023-01-23] MEDS: ROSUVASTATIN CALCIUM 5 MG TAB PO SCH (07:55)
[2023-01-23] MEDS: MULTIVITAMIN TAB PO SCH (07:55)
[2023-01-23] MEDS: APIXABAN 5 MG TABLET PO SCH ×2 (07:55→21:22)
[2023-01-23] MEDS: INSULIN ASPART PER UNIT CHARGE SC SCH ×4 (08:09→20:55)
[2023-01-23] MEDS: METOPROLOL SUCC 50MG EXT REL TAB PO SCH (08:09)
[2023-01-23] MEDS: dilTIAZem HCL 240 MG CAPCR PO SCH (08:48)
[2023-01-23] MEDS ORDERED: dilTIAZem HCL 180 MG CAPCR PO SCH (09:00)
[2023-01-23 09:24] LABS: Estimated Average Glucose 146 mg/dl; Hemoglobin A1C 6.7 % (4.5-5.6)
[2023-01-23 09:45] LABS: Albumin Level 4.1 gm/dl (3.4-5.0); Calcium 9.4 mg/dl (8.6-10.3); Creatinine Clr Calc Pharmacy 78.8 ml/min; Est GFR (African American) 97.4 ml/min; Magnesium 1.9 mg/dl (1.7-2.4); Phosphorus 3.1 mg/dl (2.5-4.9); Potassium 3.7 mmol/L (3.5-5.1)
[2023-01-23] MEDS ORDERED: MAGNESIUM SULFATE / D5W 1 GM/100 ML BAG IV ONE (10:03)
[2023-01-23] MEDS ORDERED: POTASSIUM CHLORIDE CRTAB 20 MEQ TABCR PO STA (10:03)
--- NOTE | 2023-01-23 11:16 | Cardiology Consultation ---
Date of Consultation January 23, 2023 Assessment & Plan (1) Fall: -uncertain if this was simply orthostatic, or secondary to syncope related to a bradydysrhythmia. -suggest proceeding with a loop recorder. (2) Atrial fibrillation with rapid ventricular response: -agree with intravenous diltiazem. -continue metoprolol succinate, long-acting diltiazem, and Eliquis. -could consider antiarrhythmic therapy with amiodarone. (3) Hypertension: -adequate control on current regimen. (4) Hyperlipidemia: -continue rosuvastatin. History of Present Illness Attending Physician: Louise Shelton MD History of Present Illness Mr. Enamorado is a 77-year-old male admitted yesterday after a fall which resulted in a scalp laceration. The patient was noted to be in atrial fibrillation with a rapid ventricular response, therefore, this consultation was ordered. Of note, the patient follows with cardiology at the [facility]. The patient was in his usual state of health until last evening. He stood from a seated position to go use the bathroom. After several steps, the patient fell striking his head with a resultant laceration. He has no memory of the fall, and only remembers waking up in the ambulance. He has never experienced syncope previously. However, he has noted that his blood pressures occasionally less than 100 systolic and his heart rate is often in the 40 beat per minute range. He does carry history of paroxysmal atrial fibrillation. He is maintained on metoprolol succinate, long-acting diltiazem, and Eliquis. We have discussed need for a loop recorder. Currently, patient is resting comfortably in bed and without complaints. Past medical and surgical history 1. Hypertension 2. Hypercholesterolemia 3. Paroxysmal atrial fibrillation 4. RBBB 5. Diabetes mellitus 6. Bilateral renal cysts 7. Right upper lobe pulmonary nodule 8. Right-sided thyroid nodule 9. Hepatic steatosis 10. Cholecystectomy-1984 11. Inguinal hernia repair-1985 Social history , but lives with his 2 sons. No tobacco alcohol Family history Noncontributory Review of systems A 10 review systems was undertaken and negative except that described above. Allergies Allergy/AdvReac Type Severity Reaction Status Date / Time No Known Allergies Allergy Verified 01/22/23 19:00 Home Medications Medication Instructions Recorded Confirmed Type cyanocobalamin (vitamin B-12) 1,000 mcg PO DAILY 04/07/19 01/22/23 History 1,000 mcg tablet multivitamin (Daily Multi-Vitamin 1 tab PO DAILY 04/07/19 01/22/23 History tablet) diltiazem HCl 180 mg capsule,24 180 mg PO DAILY 11/11/19 01/22/23 History hr,extended release metformin 500 mg tablet 2,000 mg PO DAILY 11/11/19 01/22/23 History apixaban 5 mg tablet 5 mg PO BID 05/19/20 01/22/23 History metoprolol succinate 100 mg 100 mg PO DAILY 01/22/23 01/22/23 History tablet,extended release 24 hr rosuvastatin 10 mg tablet 5 mg PO DAILY 01/22/23 01/22/23 History Patient History Medical History Atrial fibrillation Bilateral renal cysts Coronary artery calcification Elevated transaminase level Hepatic steatosis Hyperlipidemia Hypertension Solitary pulmonary nodule Thyroid nodule Type 2 diabetes mellitus Volar plate injury of finger Surgical History History of cholecystectomy 1985 History of hernia repair 1985 Family History Mother Stroke Gallbladder disease Cardiac disorder Hypertension Brother Gallbladder disease Hypertension Diabetes Drug abuse Father Cardiac disorder Hypertension Grandmother (Paternal) Breast cancer Denies family history of Ovarian cancer Prostate cancer Colorectal cancer Social History Smoking Status: Former smoker Second Hand Exposure: No; Do You Dip or Chew Tobacco: No; Tobacco Cessation Education Requested by Patient: No Hx Alcohol Use: No Hx Substance Use: No Preferred Language: Persian Communication Ability: Effective Visual Impairment: Limited Hearing Ability: Normal Beliefs That Will Affect Care: None marital status: / Current Living Situation: Family Current Living Situation Comment: lives with two sons current occupational status: retired How many Children do You have: 2 Other Information That Helps Us Care for You: No Feels Safe at Home: Yes Safety Concerns: Feels Safe At This Time Childhood Exposure to Second-Hand Smoke: No caffeine: Yes (coffee ) Dental Care, Regularly: No Physical Activity Frequency: Does not Exercise Seatbelt Use: always Sunscreen Use: No Assistive Devices: None Physical Exam Physical Exam: In general is well-developed well-nourished white male in no acute distress. HEENT exam notes several gilbert on the right scalp. His air is blood tinged on the right side. Neck is supple with full carotid upstrokes. There are no carotid bruits. Jugular is pressure is flat at 90. There is no thyromegaly. Cardiovascular exam reveals an irregular irregular rhythm with distant heart sounds. No obvious murmurs are noted. Lungs are clear without rales, rhonchi, or wheezes. Abdomen is soft without bruits. Extremities reveal intact radial artery pulses bilaterally. There is no peripheral edema. Results & Data Vital Signs (Past 12 Hours) Vital Signs Temp Pulse Pulse Resp BP Pulse Ox O2 Del Method 01/23/23 11:08 36.6 C 122 H 19 157/106 H 94 Room Air 01/23/23 07:21 36.7 C 121 H 18 157/101 H 95 Room Air 01/23/23 02:34 36.6 C 69 18 126/68 92 Room Air 01/23/23 02:00 96 H 01/22/23 23:22 36.6 C 98 H 18 154/91 H 98 Room Air Laboratory Results CBC notes hemoglobin 13.5, hematocrit 40.6, white count 5.57, and platelet count of [id number]. Electrolytes note a sodium of 143, potassium 4.6, chloride 105, bicarb 22, BUN 22, creatinine 1.17, glucose of 180. Magnesium level is normal 1.7. High sensitivity troponins 4.6. Diagnostic Findings EKG notes atrial fibrillation with a rapid ventricular response. There is a complete right bundle branch block. Chest x-ray notes cardiomegaly and a right upper lobe nodule. PG Care Time/CCT Total # of Minutes Spent Total Time Spent with Patient: Total time spent is greater than 50% in coordination of care (as documented) at patient's floor/unit and/or counseling patient: Coding Level of Care Code 66572 INT INP/OBS CARE 3/75MIN Diagnoses Fall W19.XXXA Atrial fibrillation with rapid ventricular response I48.91 Hypertension I10 Hypertension type: essential hypertension Hyperlipidemia E78.5 Hyperlipidemia type: unspecified (3) Hypertension Hypertension type: essential hypertension Qualified Code(s): I10 - Essential (primary) hypertension (4) Hyperlipidemia Hyperlipidemia type: unspecified Qualified Code(s): E78.5 - Hyperlipidemia, unspecified
--- NOTE | 2023-01-23 13:57 | Hospitalist Progress Note ---
Date of Service January 23, 2023 Assessment & Plan (1) Syncope and collapse: Plan: Status post fall with syncopal episode and collapse-was feeling lightheaded prior to standing up and walking to the bathroom after which he passed out. No witnessed seizure activity. Does have frequent episodes of feeling completely drained and unable to get up at home sometimes with heart rates measured in the 40s. Also has other times where he senses a racing heart beat Presented here with rapid atrial fibrillation. Blood pressures are currently elevated CT scan of head is negative, other than for right scalp laceration CT scan of cervical spine is negative other than for 2.5 cm right thyroid nodule TSH normal. CBC normal, no renal failure, no fevers or recent illness. Presumptively associated with development of A-fib with RVR and adverse effect on blood pressure versus bradycardia dysrhythmia causing syncope? Continue telemetry monitoring Echocardiogram is normal without significant valvular disease Check orthostatic vital signs (2) Atrial fibrillation with rapid ventricular response: Plan: Presented with rapid atrial fibrillation. Has a history of paroxysmal atrial fibrillation. This in the setting of syncope as noted above Troponin negative on arrival Initially placed on diltiazem drip which has been weaned off with the addition of 2 doses of diltiazem 30 mg p.o. Rates are now well controlled in the 80s to 90s Appreciate cardiology consultation -Increase home diltiazem to 240 mg extended release once daily -Continue apixaban 5 mg p.o. twice daily -Continue metoprolol succinate 100 mg p.o. daily -Cardiology recommends implantation of loop recorder tomorrow to monitor for bradycardia and tachycardia -Optimize potassium magnesium-give 1 g IV magnesium sulfate and 48 mEq p.o. p otassium chloride today -Follow BMP and magnesium in the morning -Continue to monitor on telemetry -Consider amiodarone as per cardiology (3) Laceration of scalp: Plan: Secondary to syncope with fall and head injury [address] Advised nurse to keep the wound clean with soap and water and allowed to air dry, leave open to air Follow-up for staple removal in 1 week (4) Hypertension: Plan: Blood pressures are mildly elevated He recently stopped his HCTZ/lisinopril due to side effect Continue metoprolol, increasing diltiazem as above Monitor (5) Thyroid nodule: Plan: TSH here is normal Previous biopsy negative in 2018 (6) Coronary artery calcification: Plan: Seen on CT scan 2020 Continue rosuvastatin, apixaban, metoprolol (7) Type 2 diabetes mellitus: Plan: Well-controlled with hemoglobin A1c 6.7% Hold metformin from home Placed on Accu-Cheks with NovoLog SSI (8) Hyperlipidemia: Plan: Continue rosuvastatin 5 mg daily (9) Solitary pulmonary nodule: Plan: Noted on chest x-ray Known and follows as an outpatient Admission and Anticipated Discharge Date Admission Date: January 22, 2023 Subjective Patient reports feeling well now. He reports at home there are days where he feels like he can barely get up out of the chair and that his whole body is very weak. There are also times where he gets up in the middle night to urinate and when he comes back feels rapid racing heartbeat. Denies chest pains or shortness of breath. He did not have any chest pains prior to passing out yesterday. He reports he was feeling somewhat off and lightheaded before he stood up to walk to the bathroom yesterday before passing out. I discussed his care with cardiology. Plans for loop recorder to be placed tomorrow Physical Exam Constitutional: WD/WN, vitals as above Neck: trachea midline, no thyromegaly Respiratory: normal respiratory effort, lungs clear to auscultation Cardiovascular: Rate/Rhythm: regular rate and + irregularly irregular Heart Sounds: no murmur Extremities: no edema Chest (Breasts): Chest: normal inspection of chest Gastrointestinal (Abdomen): normal bowel sounds, soft, nontender, no hepatosplenomegaly Musculoskeletal: Extremities: extremities normal to inspection; no cyanosis and no clubbing Skin: no rashes, warm and dry Trauma: + laceration (Right side of scalp with 2 cm laceration, [address]) Neurologic: moves all extremities and awake; no focal motor deficits Psychiatric: A+Ox3, euthymic affect Lymphatic: no lymphedema Results & Data Results & Data Vital Signs (Past 12 Hours) Vital Signs Temp Pulse Pulse Resp BP Pulse Ox O2 Del Method 01/23/23 11:08 36.6 C 122 H 19 157/106 H 94 Room Air 01/23/23 07:21 36.7 C 121 H 18 157/101 H 95 Room Air 01/23/23 02:34 36.6 C 69 18 126/68 92 Room Air 01/23/23 02:00 96 H Laboratory Results CBC, BMP, magnesium level reviewed PG Care Time/CCT Total # of Minutes Spent Total Time Spent with Patient: Total time spent is greater than 50% in coordination of care (as documented) at patient's floor/unit and/or counseling patient: Coding Level of Care Code 84297 SUB INP/OBS CARE 3/50MIN Diagnoses Syncope and collapse R55 Atrial fibrillation with rapid ventricular response I48.91 Laceration of scalp S01.01XA Hypertension I10 Hypertension type: essential hypertension Thyroid nodule E04.1 Coronary artery calcification I25.10; I25.84 Type 2 diabetes mellitus E11.9 Diabetes mellitus complication status: without complication Diabetes mellitus detention insulin use: without detention use Hyperlipidemia E78.5 Hyperlipidemia type: unspecified Solitary pulmonary nodule R91.1 (4) Hypertension Hypertension type: essential hypertension Qualified Code(s): I10 - Essential (primary) hypertension (7) Type 2 diabetes mellitus Diabetes mellitus complication status: without complication Diabetes mellitus detention insulin use: without director long term care use Qualified Code(s): E11.9 - Type 2 diabetes mellitus without complications (8) Hyperlipidemia Hyperlipidemia type: unspecified Qualified Code(s): E78.5 - Hyperlipidemia, unspecified
--- NOTE | 2023-01-23 15:33 | XCELERA ---
[id number]
--- NOTE | 2023-01-23 16:44 | Electrocardiogram Report ---
Test Reason : Blood Pressure : / mmHG Vent. Rate : 130 BPM Atrial Rate : 131 BPM P-R Int : 000 ms QRS Dur : 132 ms QT Int : 294 ms P-R-T Axes : 000 092 -34 degrees QTc Int : 432 ms Poor data quality, interpretation may be adversely affected Probable Atrial flutter Right bundle branch block Abnormal ECG When compared with ECG of 04-DEC-2022 17:04, Vent. rate has increased BY 61 BPM Confirmed by Nadeem Lockhart ([id number]) on 01/23/2023 4:44:01 PM Referred By: REFERRED SELF Confirmed By:Nadeem Lockhart
--- NOTE | 2023-01-23 16:47 | Electrocardiogram Report ---
Test Reason : Blood Pressure : / mmHG Vent. Rate : 118 BPM Atrial Rate : 092 BPM P-R Int : 000 ms QRS Dur : 134 ms QT Int : 372 ms P-R-T Axes : 000 073 -34 degrees QTc Int : 521 ms Atrial fibrillation with rapid ventricular response Right bundle branch block Abnormal ECG When compared with ECG of 22-JAN-2023 17:18, (unconfirmed) Atrial fibrillation now present Confirmed by Nadeem Lockhart ([id number]) on 01/23/2023 4:47:13 PM Referred By: REFERRED SELF Confirmed By:Nadeem Lockhart
[2023-01-24 06:02] LABS: Basophils # (auto) 0.03 K/uL (0-0.2); Basophils % (auto) 0.6 %; Eosinophils # (auto) 0.06 K/uL (0-0.50); Eosinophils % (auto) 1.2 %; Hematocrit (blood only) 39.5 % (42.0-52.0); Hemoglobin 13.2 g/dl (14.0-18.0); Immature Granulocytes # (auto) 0.02 K/uL (0.01-0.20); Immature Granulocytes % (auto) 0.4 %; Lymphocytes # (auto) 1.12 K/uL (1.2-3.4); Lymphocytes % (auto) 21.9 %; Mean Corpuscular Hemoglobin 29.3 pg (25.0-34.0); Mean Corpuscular Hgb Conc 33.4 g/dL (32.0-36.0); Mean Corpuscular Volume 87.6 fL (80.0-100.0); Mean Platelet Volume 10.2 fL (9.4-12.4); Monocytes # (auto) 0.41 K/uL (0.11-0.59); Neutrophils # (auto) 3.48 K/uL (1.40-6.50); Neutrophils % (auto) 67.9 %; Platelet Count 186 K/uL (130-400); RDW Coefficient of Variation 13.8 % (11.5-14.5); RDW Standard Deviation 43.9 fL (36.4-46.3); Red Blood Count 4.51 M/uL (4.70-6.10); White Blood Count 5.12 K/ul (4.8-10.8)
[2023-01-24 06:11] LABS: Albumin Level 3.9 gm/dl (3.4-5.0); BUN Creatinine Ratio 18.7 (10-20); Calcium 9.1 mg/dl (8.6-10.3); Est GFR (African American) 95.2 ml/min; Est GFR (Non-African American) 82.2 ml/min; Magnesium 1.8 mg/dl (1.7-2.4); Phosphorus 2.8 mg/dl (2.5-4.9); Potassium 4.1 mmol/L (3.5-5.1)
[2023-01-24] MEDS ORDERED: LIDOCAINE 1% LOCAL 20 ML VIAL ONE (07:12)
[2023-01-24] MEDS: APIXABAN 5 MG TABLET PO SCH (08:35)
[2023-01-24] MEDS: INSULIN ASPART PER UNIT CHARGE SC SCH ×2 (08:35→13:03)
[2023-01-24] MEDS: CYANOCOBALAMIN (B-12) 500 MCG TABLET PO SCH (08:37)
[2023-01-24] MEDS: dilTIAZem HCL 240 MG CAPCR PO SCH (08:37)
[2023-01-24] MEDS: ROSUVASTATIN CALCIUM 5 MG TAB PO SCH (08:37)
[2023-01-24] MEDS: METOPROLOL SUCC 50MG EXT REL TAB PO SCH (08:37)
[2023-01-24] MEDS: MULTIVITAMIN TAB PO SCH (08:37)
[2023-01-24] MEDS ORDERED: MAGNESIUM SULFATE / D5W 1 GM/100 ML BAG IV ONE (08:38)
--- NOTE | 2023-01-24 12:18 | Electrophysiology Report ---
Date of Service January 24, 2023 Electrophysiology Procedure Electrophysiology Procedure Report The procedure performed: Implantation of patient activated loop recorder Staff photonics engineering technician: Theron Baer MD Indication: The patient is a 77-year-old gentleman with a history of syncope. He is known to have a variety of arrhythmias and the device was implanted in order to help diagnose the etiology of his syncope. Procedure in detail: The patient was informed of the risks benefits and alternatives to the intended procedure. They understood such and wished to proceed. The patient was taken to the electrophysiology suite where the upper chest area was prepped and draped in the usual sterile fashion. An area left lateral to the sternum in the 4th intercostal space was subsequently anesthetized using subcutaneous administration of lidocaine solution. A small incision was made at this site and implantation of the loop recorder was accomplished using a proprietary implantation tool. The small incision was subsequently closed using a single 4 0 Vicryl suture. Steri-Strips and a sterile dressing were then applied. The patient tolerated the procedure well. There were no immediate complications. The device was tested noninvasively prior to conclusion of the procedure. Equipment used: Patient activated loop recorder: Test [employer]. Model number [id number]. Serial number [id number] MN[employer] Electrophysiology codes Implantable Monitors Procedure 1: Implantable Monitors: [id number] Loop Recorder Implant
--- NOTE | 2023-01-24 15:26 | Discharge Summary ---
Date of Service January 24, 2023 Admission HPI Per Admitting Provider The patient is a 77-year-old male with past medical history including atrial fibrillation, hepatic steatosis, hyperlipidemia, hypertension, solitary pulmonary nodule, thyroid nodule and diabetes mellitus type 2. He presents to the emergency department after a syncopal episode while at home, and upon arrival to the emergency department found in atrial fibrillation with RVR. The patient reports that his first recollection after passing out was waking up in the ambulance on the way to the hospital Principal Diagnosis Syncope Rapid atrial fibrillation and flutter Discharge Exam Constitutional WD/WN, vitals as above Neck trachea midline, no thyromegaly Respiratory normal respiratory effort, lungs clear to auscultation Cardiovascular Rate/Rhythm: regular rate and + irregularly irregular Heart Sounds: no murmur Extremities: no edema Chest (Breasts) Chest: normal inspection of chest Gastrointestinal (Abdomen) normal bowel sounds, soft, nontender, no hepatosplenomegaly Musculoskeletal Extremities: extremities normal to inspection; no cyanosis and no clubbing Skin no rashes, warm and dry Trauma: + laceration (Right side of scalp with 2 cm laceration, [address]) Neurologic moves all extremities and awake; no focal motor deficits Psychiatric A+Ox3, euthymic affect Lymphatic no lymphedema Discharge Data Allergies Allergy/AdvReac Type Severity Reaction Status Date / Time No Known Allergies Allergy Verified 01/22/23 19:00 Consultations 01/22/23 20:23 ED Decision to Admit Stat 01/23/23 08:03 Consult Cardiology Routine Procedures Performed Operation Date: 01/24/23 14:00 Actual Procedures p Implant Cardiac Event Recorder - Theron Baer MD Ordered Studies 01/22/23 17:25 CT head/brain wo con Stat 01/22/23 17:31 CT cervical spine wo con Stat 01/24/23 07:00 EP Lab Images for PACS ONCE ECHO Hospital Course (1) Syncope and collapse: Status post fall with syncopal episode and collapse-was feeling lightheaded prior to standing up and walking to the bathroom after which he passed out. No witnessed seizure activity. Does have frequent episodes of feeling completely drained and unable to get up at home sometimes with heart rates measured in the 40s. Also has other times where he senses a racing heart beat Presented here with rapid atrial fibrillation and also has atrial flutter at times. Blood pressures are normal to elevated, not low CT scan of head is negative, other than for right scalp laceration CT scan of cervical spine is negative other than for 2.5 cm right thyroid nodule TSH normal. CBC normal, no renal failure, no fevers or recent illness. Presumptively associated with development of A-fib with RVR and adverse effect on blood pressure versus bradycardia dysrhythmia causing syncope? Echocardiogram is normal without significant valvular disease Not lightheaded with standing, doing well Loop recorder placed (2) Atrial fibrillation with rapid ventricular response: Presented with rapid atrial flutter but also has rate controlled atrial fibrillation on tele. Has a history of paroxysmal atrial fibrillation presumably but Cardiology records from 2020 do not specify. This in the setting of syncope as noted above Troponin negative on arrival Initially placed on diltiazem drip which has been weaned off with the addition of 2 doses of diltiazem 30 mg p.o. Rates are now well controlled in the 80s to 90s in Afib, but has Aflutter in the 120-130s intermittently Appreciate cardiology consultation -Increased home diltiazem to 240 mg extended release once daily -Continue apixaban 5 mg p.o. twice daily -Continue metoprolol succinate 100 mg p.o. daily -Cardiology recommends implantation of loop recorder to monitor for bradycardia and tachycardia -Optimize potassium magnesium-gave magnesium here -f/u with Cardiology in 1 week (3) Laceration of scalp: Secondary to syncope with fall and head injury [address] -keep the wound clean with soap and water and allowed to air dry, leave open to air -Follow-up for staple removal in 1 week w/ PCP (4) Hypertension: Blood pressures are mildly elevated to normal He recently stopped his HCTZ/lisinopril due to side effect Continue metoprolol, increased diltiazem as above (5) Thyroid nodule: TSH here is normal Previous biopsy negative in 2018 (6) Coronary artery calcification: Seen on CT scan 2020 Continue rosuvastatin, apixaban, metoprolol (7) Type 2 diabetes mellitus: Well-controlled with hemoglobin A1c 6.7% Hold metformin from home Placed on Accu-Cheks with NovoLog SSI (8) Hyperlipidemia: Continue rosuvastatin 5 mg daily (9) Solitary pulmonary nodule: Noted on chest x-ray Known and follows as an outpatient Plan Dispo-stable for dc to home Discussed care with Dr. Lema Total Time Total Time Spent Total Time Spent (In Minutes): 40 min Discharge Plan Discharge Items Patient Disposition: Home - Self-Care Reason For Visit: ATRIAL FIB WITH RVR. SYNCOPE Discharge Diagnosis: Atrial fibrillation and flutter with rapid ventricular response Syncope Scalp laceration Condition on Discharge: Good Activity: As commented below Lifting: Gradually increase as tolerated Bathing: No limitations Exercise/Sports: Gradually increase as tolerated Driving/Machine Use: No driving until cleared by your [facility] Non-emergency contact: Primary Care Provider and [facility] Call non-emergency contact if: you have any medication questions and your symptoms worsen Follow-up/Referrals: Sukhi Kearns MD [Primary Care Provider] - (Follow up within 1-2 weeks.) Theron Baer MD [Physician] - (Follow up with Dr. Baer in 1 week for your loop recorder.) [facility] [Non-Staff] - (Follow up within 1-2 weeks with your [place] [facility] ) Diet: Carb Consistent or DM2 and Heart Healthy Addtl Attending Provider Instructions: You were admitted for passing out which is likely related to your irregular heart rhythm. Your diltiazem dose was increased to 240mg once daily to better control your fast heart rate. You had a loop recorder placed to monitor your heart rhythm from home. Please follow up with the [facility] within 1 week for this. Keep the scalp wound clean with warm water and soap, pat dry, and leave it open to the air. You will need to have the gilbert removed in 1 week. This can be done at your PCP's office. Pending Studies at Discharge: No Stand-Alone Forms: [facility], Smoking Cessation Medications and DC Order Prescriptions: New diltiazem HCl 240 mg Capsule,Extended Release 24hr 240 mg PO DAILY Qty: 30 0RF Continued cyanocobalamin (vitamin B-12) 1,000 mcg tablet 1,000 mcg PO DAILY multivitamin [Daily Multi-Vitamin] tablet 1 tab PO DAILY metformin 500 mg tablet 2,000 mg PO DAILY apixaban 5 mg tablet 5 mg PO BID metoprolol succinate 100 mg Tablet Extended Release 24 Hr 100 mg PO DAILY rosuvastatin 10 mg Tablet 5 mg PO DAILY Discontinued diltiazem HCl 180 mg capsule,extended release 24 hr 180 mg PO DAILY Discharge Orders: Discharge Order (Routine); Ordered 01/24/23 Ordered By: Louise Murcia/Other Patient Handouts: Managing Type 2 Diabetes Admission Data Admit Date/Time: 01/22/23 21:30 Attending Provider: Louise Shelton Admit Provider: Rene Bae Primary Care Provider: Sukhi Kearns Other Providers: Rene Bae ; [facility] ; Nadeem Lockhart Coding Level of Care Code 77321 INP/OBS DISCH >30 MIN Diagnoses Syncope and collapse R55 Atrial fibrillation with rapid ventricular response I48.91 Laceration of scalp S01.01XA Hypertension I10 Hypertension type: essential hypertension Thyroid nodule E04.1 Coronary artery calcification I25.10; I25.84 Type 2 diabetes mellitus E11.9 Diabetes mellitus terminal clerk insulin use: without senior care use Diabetes mellitus complication status: without complication Hyperlipidemia E78.5 Hyperlipidemia type: unspecified Solitary pulmonary nodule R91.1
--- NOTE | 2023-01-25 04:50 | Electrocardiogram Report ---
Test Reason : Blood Pressure : / mmHG Vent. Rate : 128 BPM Atrial Rate : 127 BPM P-R Int : 000 ms QRS Dur : 130 ms QT Int : 330 ms P-R-T Axes : 000 082 -25 degrees QTc Int : 481 ms Probable Atrial flutter Right bundle branch block Abnormal ECG When compared with ECG of 23-JAN-2023 05:12, No significant change Confirmed by Dajuan Lema ([id number]) on 01/25/2023 4:50:29 AM Referred By: REFERRED SELF Confirmed By:Dajuan Lema
--- NOTE | 2023-01-25 05:20 | Electrocardiogram Report ---
Test Reason : Blood Pressure : / mmHG Vent. Rate : 076 BPM Atrial Rate : 227 BPM P-R Int : 000 ms QRS Dur : 132 ms QT Int : 408 ms P-R-T Axes : 000 070 031 degrees QTc Int : 459 ms Atrial flutter Right bundle branch block Abnormal ECG When compared with ECG of 24-JAN-2023 06:12, Vent. rate has decreased BY 52 BPM Confirmed by Dajuan Lema ([id number]) on 01/25/2023 5:19:54 AM Referred By: REFERRED SELF Confirmed By:Dajuan Lema
== END 2023-01-24 17:00 | disposition home or self-care (01) | DRG 262 ==
LOC: ED 17:08 → SUATTDRO 21:30 → 2S 21:30

== ENCOUNTER 2023-04-08 06:47 | Observation (INO) ==
[2023-04-08] MEDS ORDERED: LIDOCAINE 1% LOCAL 20 ML VIAL ONE ×2 (07:05→09:45)
--- NOTE | 2023-04-08 08:11 | Pre Anesthesia Assessment ---
Date of Service April 08, 2023 Pre Sedation Assessment Vital Signs Pulse Resp BP Pulse Ox O2 Del Method 04/08/23 07:05 100 H 14 195/129 H 94 Room Air Cardiovascular + regular rhythm and + irregularly irregular Respiratory + respiratory effort normal Pre-Sedation Airway Assessment Smoking Status: Former smoker Hx Sleep Apnea: No Hx Difficult Intubation: No Short, Thick Neck: No Thyromental Distance: > or= 3.5 Finger Breadths Oral Cavity: + Dental Abnormalities Mallampati Class: III ASA: ASA3 NPO Status Date of Last Intake of Fluids: 04/07/23 Time of Last Intake of Fluids: 20:00 Date of Last Intake of Solid Food: 04/07/23 Time of Last Intake of Solid Foods: 20:00 Procedure Planning Contraindications for Sedation: none Current Medications Reviewed: Yes Notes The planned sedation has been discussed with the patient. Informed Consent was obtained. I have identified the patient, determined the appropriateness of sedation and have assessed the patient immediately prior to the procedure. All medicine(s) and interventions are by my order.
--- NOTE | 2023-04-08 08:14 | History & Physical Report ---
Date of Service April 08, 2023 Assessment & Plan (1) Atrial flutter: Plan 1. Atrial flutter: Plan EPS and possible ablation. Depending on conduction afterward, perhaps a pacemaker as well. Patient appraised of plan and possible outcomes. History of Present Illness Primary Care Provider: Sukhi Kearns MD Patient with history of atrial flutter and occasional bradycardia. History of syncope Allergies Allergy/AdvReac Type Severity Reaction Status Date / Time No Known Allergies Allergy Verified 04/08/23 07:21 Home Medications Medication Instructions Recorded Confirmed Type cyanocobalamin (vitamin B-12) 1,000 mcg PO DAILY 04/07/19 04/08/23 History 1,000 mcg tablet multivitamin (Daily Multi-Vitamin 1 tab PO DAILY 04/07/19 04/08/23 History tablet) metformin 500 mg tablet 2,000 mg PO DAILY 11/11/19 04/08/23 History apixaban 5 mg tablet 5 mg PO BID 05/19/20 04/08/23 History metoprolol succinate 100 mg 100 mg PO DAILY 01/22/23 04/08/23 History tablet,extended release 24 hr rosuvastatin 10 mg tablet 5 mg PO DAILY 01/22/23 04/08/23 History diltiazem HCl 240 mg 240 mg PO DAILY #30 caps 01/24/23 04/08/23 Rx capsule,extended release 24 hr Past Med/Surg History Medical History Atrial fibrillation Bilateral renal cysts Coronary artery calcification Elevated transaminase level Hepatic steatosis Hyperlipidemia Hypertension Solitary pulmonary nodule Thyroid nodule Type 2 diabetes mellitus Volar plate injury of finger Surgical History History of cholecystectomy History of hernia repair Family History Mother Stroke Gallbladder disease Cardiac disorder Hypertension Brother Gallbladder disease Hypertension Diabetes Drug abuse Father Cardiac disorder Hypertension Grandmother (Paternal) Breast cancer Denies family history of Ovarian cancer Prostate cancer Colorectal cancer Social History Smoking Status: Former smoker Second Hand Exposure: No; Do You Dip or Chew Tobacco: No; Tobacco Cessation Education Requested by Patient: No Hx Alcohol Use: No Hx Substance Use: No Preferred Language: Mosotho Communication Ability: Effective Visual Impairment: Limited Hearing Ability: Normal Beliefs That Will Affect Care: None marital status: / Current Living Situation: Alone Current Living Situation Comment: lives with two sons current occupational status: retired How many Children do You have: 2 Other Information That Helps Us Care for You: No Feels Safe at Home: Yes Safety Concerns: Feels Safe At This Time Childhood Exposure to Second-Hand Smoke: No caffeine: Yes (coffee ) Dental Care, Regularly: No Physical Activity Frequency: Does not Exercise Seatbelt Use: always Sunscreen Use: No Assistive Devices: None Review of Systems Review of Systems: per HPI Physical Exam Physical Exam: Alert. Oriented. Answered all questions appropriately Anicteric normal respiratory effort irregular rhythm no edema Results & Data Results & Data Vital Signs (Past 12 Hours) Vital Signs Pulse Resp BP Pulse Ox O2 Del Method 04/08/23 07:05 100 H 14 195/129 H 94 Room Air
[2023-04-08] MEDS ORDERED: fentaNYL citrate PF 100 MCG/2 ML VIAL ONE ×2 (08:17→09:35)
[2023-04-08] MEDS ORDERED: MIDAZOLAM HCL 5 MG/ML 1 ML VIAL ONE ×2 (08:17→09:35)
[2023-04-08] MEDS ORDERED: ISOPROTERENOL HCL 0.2 MG/ML 5 ML AMP IV ONE (08:45)
[2023-04-08] MEDS ORDERED: HEPARIN (PORCINE) 1000 UNIT/ML 10 ML (CATH LAB USE ONLY) ONE (09:01)
[2023-04-08] MEDS ORDERED: BUPIVACAINE 0.25% PF 30 ML VIAL ONE (09:45)
[2023-04-08] MEDS ORDERED: WATER, STERILE FOR INJ 10 ML VIAL ONE (09:45)
[2023-04-08] MEDS ORDERED: VANCOMYCIN HCL 1000MG/20ML VIAL ONE (09:45)
[2023-04-08] MEDS ORDERED: ceFAZolin 330 MG/ML 1 GM VIAL ONE (09:45)
[2023-04-08] MEDS ORDERED: oxyCODONE HCL IR 5 MG TAB (IMMEDIATE RELEASE) PO PRN (11:28)
[2023-04-08] MEDS ORDERED: ACETAMINOPHEN 325 MG TAB PO PRN (11:28)
--- NOTE | 2023-04-08 11:28 | Electrophysiology Report ---
Date of Service April 08, 2023 Electrophysiology Procedure Electrophysiology Procedure Report Procedure performed: Implantation of dual-chamber permanent pacemaker with left bundle pacing lead Staff battery parts assembler: Theron Baer MD Indication: The patient is a 78-year-old gentleman with a history of atrial arrhythmia and associated pauses. He also has a history of syncope. 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 Dual- chamber device was selected as the patient is currently in sinus rhythm and wish to maintain AV synchrony. Procedure in detail: The patient was informed of the risks benefits and alternatives to the intended procedure and she wished to proceed. He was taken to the electrophysiology suite in a fasting state. A preoperative antibiotic had been administered. The patient was monitored electrocardiographically throughout today's procedure and conscious sedation was administered per protocol. The left upper pectoral area is prepped and draped in usual sterile fashion. This area was anesthetized using subcutaneous administration of a xylocaine solution. An incision was made at this site and carried down to the prepectoralis fascia using sharp dissection. Electrocautery was also employed for dissection as well as for hemostasis. A device pocket was fashioned tissues above the pectoralis muscle. Subsequent to this maneuver the left axillary vein was accessed using modified Seldinger technique. Sheath was placed over the first guidewire and used to facilitate passage of a guiding catheter for mapping of the interventricular septum. When appropriate site was identified the right ventricular pacing lead was advanced into the interventricular septum until left bundle capture was confirmed. The guiding sheath was then removed. The proximal portion of the lead was then sutured to the prepectoralis fascia using nonabsorbable suture. Sheath was placed over the remaining guidewire and use facilitate passage of a pacing lead to the right atrium under fluoroscopic guidance. Adequate sensing and threshold parameters were obtained prior to active-fixation's lead to the endocardial surface. The proximal portion of lead was then sutured the prepectoralis fascia using nonabsorbable suture. The device pocket was irrigated with antibiotic solution. The leads were then attached to the device. The device and leads were then placed in the pocket and pocket was closed in 3 layers of absorbable suture. Steri-Strips and sterile dressing were applied. The device was tested noninvasively prior to conclusion the procedure. The patient tolerated procedure well there no immediate complications. Equipment used: New pulse generator: Facility Specialist [employer]. Model number: W1 DR 01 serial number [id number] Right atrial lead: Facility Specialist [employer]. Model number: 5076 serial number [id number] Right ventricular lead: Facility Specialist [employer]. Model number: 3830 serial number [id number] Measured data: Right atrial lead: P waves measured 1.3 mV. Pacing threshold was 1 V at 0.5 ms with a pacing impedance of 541 ohms Right ventricular lead: R waves measured 10.9 mV. Pacing threshold was 0.6 V at 0.5 ms with a pacing impedance of 913 ohms Impression: Successful implantation of dual-chamber permanent pacemaker with left bundle pacing lead [facility] Electrophysiology codes Pacing Procedure 1: Pacin Insert/Replace Pacer A & V PG Moderate Sedation Codes Moderate Sedation Codes Procedure 1: Sedation/Anesthesia: 58010 Mod Sedation by the same physician;Init15 Min Child Age 5 & Up Procedure 2: Sedation/Anesthesia: 86463 Mod Sedation by the same physician; Ea [id number] Minutes
--- NOTE | 2023-04-08 11:28 | Post Anesthesia Assessment ---
Date of Service April 08, 2023 Post Sedation Assessment Vital Signs Pulse Resp BP Pulse Ox O2 Del Method 04/08/23 07:05 100 H 14 195/129 H 94 Room Air Recovery Score Activity: Moves 4 extremities Respiration: Deep Breath/Cough Circulation: +/-20% PreAnes Value Consciousness: Arouseable (by name) Oxygen Saturation: > 92% On Room Air Discharge Sedation Level of Care: Fast Track Phase II Post Sedation Plan On clinical assessment, the patient appears to have tolerated the sedation without complications. Patient is recovering as anticipated. Patient will continue to be monitored by nursing and may be discharged when sedation discharge criteria are met per below protocol. Upon Completions of procedure up to 15 minutes continue every 5 minute vital signs and the P.A.R. score; then discharge to a Phase I or Fast Track to Phase II per the following guidelines: * Discharge Patient to appropriate Phase II area if PAR is 8 or greater or return to pre- procedure baseline. The post - procedure orders will be as directed. * If PAR score is less than 8 or not return to pre-procedure baseline then patient will follow Phase I monitoring till PAR is reached for Phase II. The Phase I may be done in procedure room or may call to secure a Phase I area. * If naloxone or flumazenil are used for reversal, hold in Phase I for continued monitoring from when last reversal dose was given for a minimum of 60 minutes or longer pending the nurse and/or physician discretion of patient condition before discharge to Phase II. Please call the Sedation Physician to re-evaluate and complete post-note for discharge to Phase II area. Do NOT discharge from procedure sedation or Phase 1 until post- sedation evaluation note is complete by procedure /sedation MD Sedation Discharge Instructions to be given to the patient at discharge to home.
--- NOTE | 2023-04-08 11:28 | Electrophysiology Report ---
Date of Service April 08, 2023 Electrophysiology Procedure Electrophysiology Procedure Report Procedure performed: Electrophysiologic testing, pacing of the left atrium via the coronary sinus, cardioversion, three-dimensional electroanatomical mapping Staff biscuit factory worker: Theron Baer MD Indication: The patient is a 78-year-old gentleman with a history of what appears to be in atrial flutter. Based on the nature of his arrhythmia and the potential for cure he was brought to electrophysiology suite today for evaluation. Procedure in detail: The patient was informed of the risk benefits and alternatives to the intended procedure. He understood and wished to proceed. He was taken to the electrophysiology suite in the fasting state. Conscious sedation was administered per protocol and the patient was monitored electrocardiographically throughout today's procedure. The right femoral area was prepped and draped in usual sterile fashion. This area was anesthetized using subcutaneous ministration of lidocaine and Marcaine solution. The right femoral vein was acc essed 3 times using modified center technique and sheath were placed over guidewires at the site. The sheath was used to facilitate passage of the EP catheters to the respective chambers under fluoroscopic guidance. This included right atrial and right ventricular as well as coronary sinus catheters. The patient's baseline conduction and arrhythmia were then characterized. Three- dimensional electroanatomical mapping was also performed. It was determined that the rhythm was atrial fibrillation the patient underwent cardioversion. Repeat electrophysiologic testing was then performed in order to characterize a baseline conduction. At this point the catheters and sheaths were removed. Hemostasis was achieved at the access site using manual pressure. The patient tolerated procedure well. There were no immediate complications. Findings: Baseline intracardiac intervals AV Wenckebach occurred at 450 ms AV node effective refractory period was 350 ms Retrograde conduction was poor in the baseline sedated state Cardioversion When it was determined that the arrhythmia was atrial fibrillation the patient underwent synchronized cardioversion using 200 J delivered in a biphasic fash ion. Impression: Atrial fibrillation
--- NOTE | 2023-04-08 18:21 | Electrocardiogram Report ---
Test Reason : Blood Pressure : / mmHG Vent. Rate : 060 BPM Atrial Rate : 060 BPM P-R Int : 168 ms QRS Dur : 130 ms QT Int : 446 ms P-R-T Axes : 000 -30 149 degrees QTc Int : 446 ms Atrial-sensed ventricular-paced rhythm Abnormal ECG When compared with ECG of 24-JAN-2023 14:01, Electronic ventricular pacemaker has replaced Atrial flutter Confirmed by Theron Baer ([id number]) on 04/08/2023 6:21:21 PM Referred By: Jarret Baer Confirmed By:Jarret Baer
[2023-04-08] MEDS ORDERED: ceFAZolin 1000MG 1,000 MG/7.5 ML SYR IV ONE (20:00)
[2023-04-08] MEDS: ROSUVASTATIN CALCIUM 5 MG TAB PO SCH (20:38)
--- NOTE | 2023-04-09 07:06 | XRay Report ---
TWO VIEW CHEST CLINICAL HISTORY: Pacemaker implantation. FINDINGS: PA and lateral chest radiographs are compared to study dated 01/22/2023 and correlated with chest CT dated 06/15/2021. A 2-lead cardiac pacemaker has been implanted and partially obscures the le ft upper chest. Leads project over the right atrial appendage and the right ventricle. The heart is m ildly enlarged noting atherosclerotic calcification of the thoracic aorta. The pulmonary vasculature is noncongested. No airspace consolidation or pleural effusion is identified. A 13 mm right upper lob e pulmonary nodule is unchanged. There is bibasilar scarring/atelectasis. There is no pneumothorax. T he skeletal structures are osteopenic. Degenerative change is seen throughout the spine. The bony tho rax appears intact. An enchondroma is again seen in the left proximal humerus. Cholecystectomy clips are present in the right upper quadrant. IMPRESSION: 1. A 2-lead cardiac pacemaker has been implanted as above. No pneumothorax is identified post procedu re. 2. Cardiomegaly without radiographic evidence of congestive failure. 3. No airspace consolidation or pleural effusion is identified. 4. A 13 mm right upper lobe pulmonary nodule is unchanged. ACT 112: Negative or not required by law. Electronically signed by: Aj Salas M.D. 04/09/2023 7:05 AM
[2023-04-09] MEDS: ROSUVASTATIN CALCIUM 5 MG TAB PO SCH (07:37)
[2023-04-09] MEDS ORDERED: metFORMIN HCL 500 MG TAB PO SCH (09:00)
[2023-04-09] MEDS ORDERED: dilTIAZem HCL 240 MG CAPCR PO SCH (09:00)
--- NOTE | 2023-04-09 10:35 | Discharge Summary ---
Date of Service April 09, 2023 Admission HPI Per Admitting Provider Patient with history of atrial flutter and occasional bradycardia. History of syncope Discharge Data Allergies Allergy/AdvReac Type Severity Reaction Status Date / Time No Known Allergies Allergy Verified 04/08/23 07:21 Procedures Performed Operation Date: 04/08/23 08:00 Actual Procedures s 3D Mapping (Carto) - Theron Baer MD p EPS w/o Induction (RA,HIS,RV) - Theron Baer MD s Remove Cardiac Event Recorder - Theron Baer MD p Pacer with A/V Leads (Dual) - Theron Baer MD Ordered Studies 04/08/23 07:15 EP Lab Images for PACS ONCE Discharge Plan Discharge Items Patient Disposition: Home - Self-Care Reason For Visit: S/P PACER Discharge Diagnosis: bradycardia Condition on Discharge: Good Activity: Resume your previous activity Lifting: No more than 10 pounds Lifting Comment: No lifting left arm above shoulder or behind neck for 6 weeks Bathing: Keep incision dry Bathing Comment: keep wound dry and steri-strip intact until f/u Driving/Machine Use: Resume 1 day after discharge Non-emergency contact: Agricultural Equipment Salesperson Call non-emergency contact if: you have any medication questions, your symptoms worsen, you have a fever, your wound has increased redness and your wound has increased drainage Follow-up/Referrals: Sukhi Keanrs MD [Primary Care Provider] - Diet: Heart Healthy Addtl Attending Provider Instructions: do not resume eliquis until tomorrow evening (04-10-2023) Pending Studies at Discharge: No Stand-Alone Forms: [facility] Che[employer] Feed, Smoking Cessation Medications and DC Order Prescriptions: New metoprolol succinate 50 mg tablet extended release 24 hr 50 mg PO DAILY Qty: 90 3RF Continued cyanocobalamin (vitamin B-12) 1,000 mcg tablet 1,000 mcg PO DAILY multivitamin [Daily Multi-Vitamin] tablet 1 tab PO DAILY metformin 500 mg tablet 2,000 mg PO DAILY apixaban 5 mg tablet 5 mg PO BID rosuvastatin 10 mg Tablet 5 mg PO DAILY diltiazem HCl 240 mg Capsule,Extended Release 24hr 240 mg PO DAILY Qty: 30 0RF Discontinued metoprolol succinate 100 mg Tablet Extended Release 24 Hr 100 mg PO DAILY Discharge Orders: Discharge Order (Routine); Ordered 04/09/23 Ordered By: Theron Baer Admission Data Admit Date/Time: 04/08/23 11:42 Attending Provider: Theron Baer Admit Provider: Theron Baer Primary Care Provider: Sukhi Kearns Other Providers: [facility],Hospital Coding Diagnoses
== END 2023-04-09 13:13 | disposition home or self-care (01) ==
LOC: 4W 06:47 → EP 06:47